=== PATIENT | female | born 1945 | race Caucasian/White ===

== ENCOUNTER 2023-12-20 00:37 | Observation (INO) ==
[2023-12-20] MEDS: dilTIAZem HCl 5 MG/ML 5 ML VIAL IV STA ×2 (00:56→02:02)
[2023-12-20 01:04] LABS: Basophils # (auto) 0.14 K/uL (0.00-0.20); Basophils % (auto) 1.5 %; Eosinophils # (auto) 0.42 K/uL (0.00-0.50); Eosinophils % (auto) 4.6 %; Hematocrit (blood only) 42.4 % (37.0-47.0); Immature Granulocytes # (auto) 0.03 K/uL (0.01-0.20); Immature Granulocytes % (auto) 0.3 %; Lymphocytes # (auto) 2.54 K/uL (1.20-3.40); Lymphocytes % (auto) 27.9 %; Mean Corpuscular Hemoglobin 30.8 pg (25.0-34.0); Mean Corpuscular Volume 93.4 fL (80.0-100.0); Mean Platelet Volume 9.2 fL (9.4-12.4); Monocytes # (auto) 0.83 K/uL (0.11-0.59); Monocytes % (auto) 9.1 %; Neutrophils # (auto) 5.16 K/uL (1.40-6.50); Neutrophils % (auto) 56.6 %; Platelet Count 259 K/uL (130-400); RDW Coefficient of Variation 13.1 % (11.5-14.5); Red Blood Count 4.54 M/uL (4.20-5.40); White Blood Count 9.12 K/ul (4.8-10.8)
--- NOTE | 2023-12-20 01:04 | Emergency Department Note ---
Impression & Plan Atrial fibrillation with rapid ventricular response Admit to the [facility] ED Provider Note NAME: MALCOLM FROST AGE: 78 SEX: Female INFORMANT: Patient ED PROVIDER(S): Fabi Pringle DO CHIEF COMPLAINT: Heart racing PLAN: Disposition: Admit to the [facility] MEDICAL DECISION MAKING: This is a 78-year-old female patient who presents to the emergency department with a racing heart sensation. Patient explains that she has had episodes in the past which were very short-lived lasting only approximately 10 to 15 minutes. Tonight, the patient noted her heart was racing around 1030 or 11 PM this evening and would not subside. Upon arrival in the emergency department, the patient was given a dose of IV Cardizem which did reduce her rate into the 80s but she remained in atrial fibrillation. Laboratory studies revealed no leukocytosis or anemia. Magnesium was within normal range. TSH was elevated but free thyroxine was normal. Troponin was negative. The patient's heart rate rebounded back into the 130s and 140s. She was bolused again with IV Cardizem and placed on a Cardizem drip. Patient's blood pressure remained stable. I discussed the case with the [facility] Hospitalist and they will evaluate for further inpatient care. Care/management discussed with: [facility] Triage Nursing notes: Reviewed and agree with them. Vital Signs: reviewed and remarkable for tachycardia Differential Diagnosis: Cardiac dysrhythmia, anxiety, cardiac ischemia Diagnostics, independently interpreted by me: ECG: A-fib with RVR at a rate of [address] segment elevation or signs of ischemia. Cardiac Monitoring: Fibrillation with rapid ventricular response at a rate of 147 HPI: 78 year old Female arrives for evaluation of heart palpitations. Around 1030 this evening, the patient noted that her heart was racing. She was unable to sleep. Patient describes previous episodes similar to this but were short- lived and only 10 to 15 minutes. She denies any chest pain, shortness of breath or lightheadedness. PAST MEDICAL HISTORY: See Below, PAST SURGICAL HISTORY: See Below, SOCIAL HISTORY: Patient lives with her but her is out of town at this time., HOME MEDICATIONS: See list ALLERGIES: None VITALS: See Below PHYSICAL EXAMINATION: HEENT: Head - normocephalic and atraumatic Pupils are equal, round, and reactive to light. Extraocular eye muscles are intact, and sclera are anicteric. Nose - moist nasal mucosa without discharge. Mouth - moist buccal mucosa. Oropharynx is nonerythematous and there is no tonsillar exudate or edema noted. Neck: Supple; no JVD, nuchal rigidity, cervical lymphadenopathy, or auscultated bruits. Heart: Tachycardic rate with an irregularly irregular rhythm. There is a normal S1 and S2 with no murmurs, clicks, or gallops appreciated. Lungs: Clear to auscultation bilaterally with no wheezes, rales, or rhonchi. Abdomen: Soft, completely nontender, nondistended, with good bowel sounds. There are no palpable pulsatile masses or hepatosplenomegaly. There is no guarding, rigidity, or rebound noted. Extremities: No evidence of cyanosis, clubbing, or edema. There are easily palpable peripheral pulses. Skin: warm and dry with good turgor and no rashes. Emergency department treatment: environmental monitoring specialist, IV Cardizem bolus, IV Cardizem drip Emergency department course: The patient was evaluated in room B-2. A complete history and physical was performed. An IV lock was initiated and labs were drawn as above. An order was placed for continuous cardiac monitoring. The patient was in a atrial fibrillation with a rapid ventricular response at a rate of 150. Twelve-lead EKG was obtained. The patient was given a dose of IV Cardizem in an effort to slow her rate. This did work initially as heart rate came down to the 80s. Upon repeat assessment, the patient was feeling somewhat better and was resting. I did review some laboratory studies with her. However, the patient's heart rate rebounded into the 140s and was back into an atrial fibrillation. At this point she received another bolus of IV Cardizem and was started on a Cardizem drip. I discussed the case with the [facility] Hospitalist and they will evaluate for further inpatient care. I have personally spent greater than 40 minutes of critical care time in the direct management of this patient. This includes bedside care, interpretation of diagnostic studies, and testing, discussion with consultants, patient, and family members, and other required patient management activities. This 40 minutes is in excess of all separately billable procedures. Past Med/Surg History Medical History Bilateral hearing loss History of COVID-19 Palpitations Rosacea Osteopenia Surgical History History of cataract surgery History of tooth extraction H/O breast surgery H/O section H/O colonoscopy Family History Mother Heart disease Afib Denies family history of Ovarian cancer Prostate cancer Myocardial infarction Breast cancer Lung cancer Colorectal cancer Stroke Social History Smoking Status: Never smoker Second Hand Exposure: No (hx); Do You Dip or Chew Tobacco: No; Hx Alcohol Use: Yes Alcohol type: wine Alcohol Intake Frequency: 4 or More x per/Week Hx Substance Use: No Preferred Language: Spanish Communication Ability: Effective Visual Impairment: Limited 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 Beliefs That Will Affect Care: None marital status: Current Living Situation: Spouse Current Living Situation Comment: current occupational status: retired How many Children do You have: 2 Feels Safe at Home: Yes Childhood Exposure to Second-Hand Smoke: Yes (father) Diet: regular caffeine: Yes during the past year weight has: remained stable Dental Care, Regularly: Yes Physical Activity Frequency: 5-6 Times per Week Seatbelt Use: always Sunscreen Use: Yes Assistive Devices: Glasses Allergies Allergies Allergy/AdvReac Type Severity Reaction Status Date / Time No Known Drug Allergies Allergy Unknown Verified 12/16/23 13:08 Home Meds Home Medications Medication Instructions Recorded Confirmed calcium polycarbophil 625 mg 625 mg PO QDL 03/16/22 12/20/23 tablet (FiberCon) ibuprofen 200 mg-diphenhydramine 1 cap PO HS PRN Sleep 03/16/22 12/20/23 HCl 25 mg capsule (Advil PM Liqui-Gels) mecobalamin (vitamin B12) 1,000 500 mcg PO DAILY 03/16/22 12/20/23 mcg chewable tablet cholecalciferol (vitamin D3) 25 25 mcg PO QDL 07/13/22 12/20/23 mcg (1,000 unit) capsule metronidazole 0.75 % topical cream 1 applic topical DAILY PRN Rash 07/13/22 12/20/23 triamcinolone acetonide 0.025 % 1 applic topical DAILY PRN Rash 07/13/22 12/20/23 topical cream Nutrafol 4 dose pk PO DAILY 01/04/23 12/20/23 calcium carbonate (Calcium 500) 500 mg PO QDL 01/04/23 12/20/23 ascorbic acid (vitamin C) 500 mg 500 mg PO QDL 12/20/23 12/20/23 capsule Results & Data (ED) Vital Signs Vital Signs - 24 hr 12/20/23 00:40 12/20/23 00:49 12/20/23 00:56 Temperature 36.5 C Temperature Source Temporal Artery Scan Pulse Rate 157 H 139 H 84 Pulse Rate [Apical] Pulse Rhythm [Apical] Pulse Strength [Apical] Respiratory Rate 16 Respiratory Effort / Characteristics Respiratory Depth Respiratory Pattern Blood Pressure 167/97 H Blood Pressure [Right Arm] Blood Pressure Mean 120 Blood Pressure Mean [Right Arm] Blood Pressure Position [Right Arm] Pulse Oximetry 98 Oxygen Delivery Method Room Air Sepsis Recent Fever Within 48 Hours No Sepsis New/Unexplained Change in Mental Status No Sepsis Action Taken by Nursing No Action Required 12/20/23 00:58 12/20/23 02:02 12/20/23 02:34 Temperature Temperature Source Pulse Rate 127 H Pulse Rate [Apical] 92 H 145 H Pulse Rhythm [Apical] Irregular Irregular Pulse Strength [Apical] Normal Respiratory Rate 18 16 Respiratory Effort / Characteristics Non-Labored Spontaneous Non-Labored Spontaneous Respiratory Depth Normal Normal Respiratory Pattern Regular Regular Blood Pressure Blood Pressure [Right Arm] 128/72 133/96 Blood Pressure Mean Blood Pressure Mean [Right Arm] 90 108 Blood Pressure Position [Right Arm] Semi-fowlers Semi-fowlers Pulse Oximetry 100 98 Oxygen Delivery Method Room Air Room Air Sepsis Recent Fever Within 48 Hours Sepsis New/Unexplained Change in Mental Status Sepsis Action Taken by Nursing 12/20/23 02:45 12/20/23 03:00 Temperature Temperature Source Pulse Rate Pulse Rate [Apical] 129 H 143 H Pulse Rhythm [Apical] Irregular Irregular Pulse Strength [Apical] Normal Normal Respiratory Rate 22 18 Respiratory Effort / Characteristics Non-Labored Non-Labored Respiratory Depth Normal Normal Respiratory Pattern Regular Regular Blood Pressure Blood Pressure [Right Arm] 143/94 H 132/83 Blood Pressure Mean Blood Pressure Mean [Right Arm] 110 99 Blood Pressure Position [Right Arm] Lying Lying Pulse Oximetry 99 97 Oxygen Delivery Method Room Air Room Air Sepsis Recent Fever Within 48 Hours Sepsis New/Unexplained Change in Mental Status Sepsis Action Taken by Nursing Laboratory Data 12/20/23 00:50 12/20/23 00:50 Lab Results 12/20/23 Range/Units 00:50 WBC 9.12 (4.8-10.8) K/ul RBC 4.54 (4.20-5.40) M/uL Hgb 14.0 (12.0-16.0) g/dl Hct 42.4 (37.0-47.0) % MCV 93.4 (80.0-100.0) fL MCH 30.8 (25.0-34.0) pg MCHC 33.0 (32.0-36.0) g/dL RDW Std Deviation 45.0 (36.4-46.3) fL RDW Coeff of Symone 13.1 (11.5-14.5) % Plt Count 259 (130-400) K/uL MPV 9.2 L (9.4-12.4) fL Immature Gran % (Auto) 0.3 % Neut % (Auto) 56.6 % Lymph % (Auto) 27.9 % [place] % (Auto) 9.1 % Eos % (Auto) 4.6 % Baso % (Auto) 1.5 % Neut # (Auto) 5.16 (1.40-6.50) K/uL Lymph # (Auto) 2.54 (1.20-3.40) K/uL [place] # (Auto) 0.83 H (0.11-0.59) K/uL Eos # (Auto) 0.42 (0.00-0.50) K/uL Baso # (Auto) 0.14 (0.00-0.20) K/uL Immature Gran # (Auto) 0.03 (0.01-0.20) K/uL Sodium 137 (136-145) mmol/L Potassium 3.7 (3.5-5.1) mmol/L Chloride 102 (98-107) mmol/L Carbon Dioxide 26 (21-32) mmol/L Anion Gap 9 (3-11) BUN 21 (6-23) mg/dl Creatinine 0.64 (0.6-1.2) mg/dl Est Cr Clr Drug Dosing 61.5 ml/min Est GFR ( Amer) 98.4 ml/min Est GFR (Non-Af Amer) 84.9 ml/min BUN/Creatinine Ratio 32.8 H (10-20) Glucose 106 H (70-99(Fasting)) mg/dl Calcium 9.2 (8.6-10.3) mg/dl Magnesium 1.7 (1.7-2.4) mg/dl Total Bilirubin 0.3 (0.2-1.0) mg/dl AST 19 (13-39) U/L ALT 13 (7-52) U/L Alkaline Phosphatase 49 (34-104) U/L Troponin I High Sens 9.0 (0-14) pg/ml Total Protein 7.6 (6.0-8.3) gm/dl Albumin 4.7 (3.4-5.0) gm/dl Globulin 2.9 (2.5-4.0) gm/dl Albumin/Globulin Ratio 1.6 (0.9-2) TSH 7.023 H (0.300-4.500) uIu/ml Free T4 0.88 (0.61-1.60) ng/dl Administered Medications Diltiazem HCl 125 mg/ Dextrose 125 mls @ 10 mls/hr IV .[id number] DAVIS; Protocol Stop: 01/19/24 01:59 Last Titration: 12/20/23 04:30 Dose: 5 mg/hr, 5 mls/hr Documented By: SHER Co-signed By: Titration: 12/20/23 02:56 Dose: 10 mg/hr, 10 mls/hr Documented By: SHER Co-signed By: IMELDA Admin: 12/20/23 02:02 Dose: 5 mg/hr, 5 mls/hr Documented By: SHALINI Co-signed By: ROMEO Magnesium Sulfate/Dextrose (Magnesium Sulfate / D5w) 1 gm in 100 mls @ 50 mls/hr IV Q2H DAVIS Stop: 12/20/23 07:14 Last Admin: 12/20/23 04:22 Dose: 50 mls/hr Documented By: SHER Potassium Chloride (K Darrell / Wtr) 10 meq in 100 mls @ 100 mls/hr IV Q1H DAVIS Stop: 12/20/23 05:14 Last Admin: 12/20/23 04:21 Dose: 100 mls/hr Documented By: SHER Discontinued Medications Diltiazem HCl (Diltiazem Hcl 5 Mg/Ml 5 Ml Vial) 15 mg IV NOW STA Stop: 12/20/23 00:50 Last Admin: 12/20/23 00:56 Dose: 15 mg Documented By: JT Co-signed By: MARGARITA Diltiazem HCl (Diltiazem Hcl 5 Mg/Ml 5 Ml Vial) 10 mg IV NOW STA Stop: 12/20/23 02:00 Last Admin: 12/20/23 02:02 Dose: 10 mg Documented By: DianeT Co-signed By: ROMEO Diltiazem HCl 125 mg/ Dextrose 125 mls @ 0 mls/hr IV .Q0M ONE; Protocol Stop: 12/20/23 01:52 Last Admin: 12/20/23 02:02 Dose: Not Given Documented By: SHALINI Miscellaneous (Stat Iv Infusion Titration Per Protocol) 1 each N/A NOW STA Stop: 12/20/23 01:52 Last Admin: 12/20/23 02:02 Dose: Not Given Documented By: SHALINI Discharge Plan Visit Data Chief Complaint: Tachycardia Stated Complaint: HEART RACING ED Provider: Fabi Pringle Discharge Problem: Atrial fibrillation with rapid ventricular response Discharge Instructions Interventions: ED Discharge Assessment Last Done: 12/20/23 03:24
[2023-12-20 01:19] LABS: Albumin Globulin Ratio 1.6 (0.9-2); Albumin Level 4.7 gm/dl (3.4-5.0); BUN Creatinine Ratio 32.8 (10-20); Bilirubin,Total 0.3 mg/dl (0.2-1.0); Calcium 9.2 mg/dl (8.6-10.3); Creatinine Clr Calc Pharmacy 61.5 ml/min; Est GFR (African American) 98.4 ml/min; Est GFR (Non-African American) 84.9 ml/min; Globulin 2.9 gm/dl (2.5-4.0); Magnesium 1.7 mg/dl (1.7-2.4); Potassium 3.7 mmol/L (3.5-5.1); Total Protein 7.6 gm/dl (6.0-8.3)
[2023-12-20 01:35] LABS: Thyroid Stimulating Hormone 7.023 uIu/ml (0.300-4.500)
[2023-12-20] MEDS: dilTIAZem HCL 125 MG in DEXTROSE 5% 100 ML IV ONE (02:02)
[2023-12-20] MEDS: STAT IV Infusion **Titration per Protocol STA (02:02)
[2023-12-20] MEDS: dilTIAZem HCL 125 MG in DEXTROSE 5% 100 ML IV SCH (02:02)
[2023-12-20 02:12] LABS: T4 Free Thyroxine 0.88 ng/dl (0.61-1.60)
--- NOTE | 2023-12-20 03:10 | History & Physical Report ---
Date of Service December 20, 2023 Assessment & Plan (1) Atrial fibrillation with RVR: Plan: -EKG showing A-fib with RVR. -Received Cardizem in the ED which initially returned to sinus rhythm. Though she quickly returned to A-fib with RVR. -Started on Cardizem drip. -CBC benign, CMP benign -TSH of 7.023, increased from previously. -Continue on diltiazem drip until converted back to normal sinus rhythm. -Will most likely need rate control medication at time of discharge. (2) Elevated blood pressure reading without diagnosis of hypertension: Plan: -Will continue monitoring blood pressure while inpatient. (3) Elevated TSH: Plan: -TSH at 7.023, which is increased from her TSH which was done on 12/06. -Will need outpatient follow-up. History of Present Illness Chief Complaint: afib with RVR Primary Care Provider: Sandra Dubose MD Patient is a 78 y/o female with no significant past medical history who presents to hospital with a fib with RVR. Patient states that she has been having a couple episodes with palpitations at nighttime. Though states that this most recent episode started around 10 PM today when she was dozing off to sleep. States that it woke her up from her sleep. She felt that her heart rate was irregular similar to when she has PVCs. She also states that she had ringing in your ears. She also states that she drank 2 glasses of wine this evening and believes that she was a little dehydrated. She drank water and her symptoms did not resolve. Around 11 PM she checked her Apple Watch which showed A-fib. She denies any chest pain, nausea, vomiting, or recent illness. States that she did just return from [place] for a lacrosse tournament. Denies any calf pain or shortness of breath. Allergies Allergy/AdvReac Type Severity Reaction Status Date / Time No Known Drug Allergies Allergy Unknown Verified 12/16/23 13:08 Home Medications Medication Instructions Recorded Confirmed Type calcium polycarbophil 625 mg 625 mg PO QDL 03/16/22 12/20/23 History tablet (FiberCon) ibuprofen 200 mg-diphenhydramine 1 cap PO HS PRN Sleep 03/16/22 12/20/23 History HCl 25 mg capsule (Advil PM Liqui-Gels) mecobalamin (vitamin B12) 1,000 500 mcg PO DAILY 03/16/22 12/20/23 History mcg chewable tablet cholecalciferol (vitamin D3) 25 25 mcg PO QDL 07/13/22 12/20/23 History mcg (1,000 unit) capsule metronidazole 0.75 % topical cream 1 applic topical DAILY PRN Rash 07/13/22 12/20/23 History triamcinolone acetonide 0.025 % 1 applic topical DAILY PRN Rash 07/13/22 12/20/23 History topical cream Nutrafol 4 dose pk PO DAILY 01/04/23 12/20/23 History calcium carbonate (Calcium 500) 500 mg PO QDL 01/04/23 12/20/23 History ascorbic acid (vitamin C) 500 mg 500 mg PO QDL 12/20/23 12/20/23 History capsule Past Med/Surg History Medical History Bilateral hearing loss History of COVID-19 Palpitations Rosacea Osteopenia Surgical History History of cataract surgery History of tooth extraction H/O breast surgery H/O section H/O colonoscopy Family History Mother Heart disease Afib Denies family history of Ovarian cancer Prostate cancer Myocardial infarction Breast cancer Lung cancer Colorectal cancer Stroke Social History Smoking Status: Never smoker Second Hand Exposure: No (hx); Do You Dip or Chew Tobacco: No; Hx Alcohol Use: Yes Alcohol type: wine Alcohol Intake Frequency: 4 or More x per/Week Hx Substance Use: No Preferred Language: Wallisian Communication Ability: Effective Visual Impairment: Limited Hearing Ability: Normal Pm Head Cook Required: No Beliefs That Will Affect Care: None marital status: Current Living Situation: Spouse Current Living Situation Comment: current occupational status: retired How many Children do You have: 2 Feels Safe at Home: Yes Childhood Exposure to Second-Hand Smoke: Yes (father) Diet: regular caffeine: Yes during the past year weight has: remained stable Dental Care, Regularly: Yes Physical Activity Frequency: 5-6 Times per Week Seatbelt Use: always Sunscreen Use: Yes Assistive Devices: Glasses Review of Systems Review of Systems: All systems reviewed & are unremarkable except as noted in Subjective Physical Exam Physical Exam: Constitutional: well-appearing, no acute distress HEENT: NCAT, no conjunctival injection CV: Irregularly irregular rate and rhythm, no murmur appreciated, extremities well-perfused, no LE edema Resp: CTABL, no wheezes/rales/rhonchi appreciated, no increased work of breathing GI: soft, nondistended, nontender, BS normoactive MSK: no gross deformities appreciated Skin: warm, dry, no rash appreciated Neuro: alert, oriented, no focal neurologic deficit appreciated Results & Data Results & Data Vital Signs (Past 12 Hours) Vital Signs Temp Pulse Pulse Resp BP BP Pulse Ox 12/20/23 03:00 143 H 18 132/83 97 12/20/23 02:45 129 H 22 143/94 H 99 12/20/23 02:34 127 H 12/20/23 02:02 145 H 16 133/96 98 12/20/23 00:58 92 H 18 128/72 100 12/20/23 00:56 84 12/20/23 00:49 139 H 12/20/23 00:40 36.5 C 157 H 16 167/97 H 98 O2 Del Method 12/20/23 03:00 Room Air 12/20/23 02:45 Room Air 12/20/23 02:34 12/20/23 02:02 Room Air 12/20/23 00:58 Room Air 12/20/23 00:56 12/20/23 00:49 12/20/23 00:40 Room Air
[2023-12-20] MEDS ORDERED: ONDANSETRON INJ 2 MG/ML 2 ML VIAL IV PRN (03:24)
[2023-12-20] MEDS ORDERED: NITROGLYCERIN SL 0.4 MG/TAB TAB SL PRN (03:24)
[2023-12-20] MEDS: POTASSIUM CHLORIDE / WTR 10 MEQ/100 ML PLCT IV SCH (04:21)
[2023-12-20] MEDS: MAGNESIUM SULFATE / D5W 1 GM/100 ML BAG IV SCH (04:22)
[2023-12-20] MEDS: ACETAMINOPHEN 325 MG TAB PO PRN (11:07)
--- NOTE | 2023-12-20 12:31 | Cardiology Consultation ---
Date of Consultation December 20, 2023 Assessment & Plan (1) Paroxysmal atrial fibrillation: Plan ASSESSMENT/PLAN: 1. Paroxysmal atrial fibrillation: Newly diagnosed during this hospital stay. Wears a smart watch and has not had indicated A-fib in the past. Possible brief A-fib 5 years ago based on her description. Diagnosis was discussed with her in detail. Treatment strategies were discussed in detail, including rate control, rhythm control, ablation. She prefers less aggressive treatment if possible. Can discharge home on metoprolol 25 mg twice daily. Elevated [id number] score (3) and therefore recommend anticoagulation for stroke risk reduction. She was agreeable. Recommend Eliquis 5 mg twice daily on discharge. If she has frequent recurrence, and remains symptomatic with such, we will further discuss rhythm control or ablation. 2. Disposition: Can be discharged home from a cardiac perspective. Will arrange outpatient follow-up in approximately 1 month in the cardiology office. Patient care communicated with primary hospitalist service, Jacquelyn Abbott PA-C. Thank you for allowing me to participate in the care of your patient. Please call for any other questions or concerns. Sincerely, Tacho Leon M.D. History of Present Illness Reason for Consultation: New onset atrial fibrillation with RVR Requesting Physician: Dr. Freeman Attending Physician: Demetrius Cervantes MD History of Present Illness Mrs. Garcia is a very pleasant 78-year-old female without significant past medical history who was admitted on 12/20/2023 with new onset atrial fibrillation with rapid ventricular response. On 12/19/2023, at approximately 10:30 PM, she laid down in bed and when she turned over, had palpitations as though her heart was racing. There was no associated shortness of breath, chest pain, syncope, near syncope, lightheadedness, or any other symptom. She did some deep breathing with no improvement of her symptoms. She then drank some water as she was concerned that she may have been dehydrated as she was out of town watching her grandson play lacrosse all day and had very little to drink. When symptoms persisted beyond 2 hours, she drove herself to the emergency department. She was found to be in A-fib with RVR. She received diltiazem and reportedly converted to sinus rhythm only quickly to revert to A-fib with RVR. Diltiazem drip was initiated. At 4:08 AM on 12/20/2023, she was in A-fib with RVR and telemetry signal was lost, perhaps to use the restroom and she was up several times throughout the night. When telemetry data returned at 4:11 AM, she was in sinus rhythm. She remained in sinus rhythm through the rest of the morning and early afternoon when she was seen for this consultation. She felt back to baseline. She has not had any further palpitations. She recalls having palpitations approximately 5 years ago while at [facility]. Symptoms persisted for 10 to 15 minutes and were similar to presenting symptoms. She was dehydrated at that time. She went to the ER the next day and testing was unremarkable. She wears a smart watch, throughout the day and typically at night as well. It alerted her that she was in atrial fibrillation last night when her symptoms began. It has not indicated atrial fibrillation prior to that at any other time. She snores if she lays on her back but otherwise denies paroxysmal nocturnal dyspnea. She feels well rested when she wakes up in the morning and does not require naps throughout the day. She denies a history of stroke, TIA, heart failure, diabetes, hypertension, or vascular disease. She feels back to baseline and would like to be discharged home. Incidentally, she consumes 2 glasses of wine the evening that her symptoms began, which is not unusual. Review of systems: As above. Review of systems otherwise negative/unremarkable. Family history: Mother had atrial fibrillation and at age 95. No known premature CAD. Social history: She denies tobacco or drug abuse. Consumes approximately 1 glass of wine per day and has cut back intentionally. She is and lives at home with her . She has a son and a daughter (RN) who live locally. She has 4 grandchildren. 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 She was unaccompanied in the ER. Allergies Allergy/AdvReac Type Severity Reaction Status Date / Time No Known Drug Allergies Allergy Unknown Verified 12/16/23 13:08 Home Medications Medication Instructions Recorded Confirmed Type calcium polycarbophil 625 mg 625 mg PO QDL 03/16/22 12/20/23 History tablet (FiberCon) mecobalamin (vitamin B12) 1,000 500 mcg PO DAILY 03/16/22 12/20/23 History mcg chewable tablet cholecalciferol (vitamin D3) 25 25 mcg PO QDL 07/13/22 12/20/23 History mcg (1,000 unit) capsule metronidazole 0.75 % topical cream 1 applic topical DAILY PRN Rash 07/13/22 12/20/23 History triamcinolone acetonide 0.025 % 1 applic topical DAILY PRN Rash 07/13/22 12/20/23 History topical cream Nutrafol 4 dose pk PO DAILY 01/04/23 12/20/23 History calcium carbonate (Calcium 500) 500 mg PO QDL 01/04/23 12/20/23 History acetaminophen 325 mg tablet 650 mg (2 x 325 mg) PO Q4H PRN 12/20/23 Rx fever or pain 30 days #30 tabs apixaban 5 mg tablet (Eliquis) 5 mg PO BID #60 tabs 12/20/23 Rx ascorbic acid (vitamin C) 500 mg 500 mg PO QDL 12/20/23 12/20/23 History capsule metoprolol tartrate 25 mg tablet 25 mg PO BID #60 tabs 12/20/23 Rx Patient History Medical History (Updated 12/20/23 @ 17:38 by Yared Leon MD) Paroxysmal atrial fibrillation Bilateral hearing loss History of COVID-03 Jun 2022 > not hospitalized Palpitations no cardio Rosacea Osteopenia Surgical History History of cataract surgery History of tooth extraction H/O breast surgery benign, calcifications. H/O section x1 H/O colonoscopy 05/08/2019 recommend repeat in 5 years Family History Mother Heart disease Afib Denies family history of Ovarian cancer Prostate cancer Myocardial infarction Breast cancer Lung cancer Colorectal cancer Stroke Social History Smoking Status: Never smoker Second Hand Exposure: No (hx); Do You Dip or Chew Tobacco: No; Hx Alcohol Use: Yes Alcohol type: wine Alcohol Intake Frequency: 4 or More x per/Week Hx Substance Use: No Preferred Language: Jordanian Communication Ability: Effective Visual Impairment: Limited Hearing Ability: Normal Airway Controller Required: No Beliefs That Will Affect Care: None marital status: Current Living Situation: Spouse Current Living Situation Comment: Two story home, with master suite on first floor. current occupational status: retired How many Children do You have: 2 Feels Safe at Home: Yes Childhood Exposure to Second-Hand Smoke: Yes (father) Diet: regular caffeine: Yes during the past year weight has: remained stable Dental Care, Regularly: Yes Physical Activity Frequency: 5-6 Times per Week Seatbelt Use: always Sunscreen Use: Yes Assistive Devices: None Physical Exam Physical Exam: Gen.: No acute distress. Alert and oriented. HEENT: Anicteric sclera. Neck: No JVD. No bruits. Normal carotid upstrokes bilaterally. Cardiac: No ventricular heave. Regular. Normal S1-S2. 1/6 systolic murmur. Pulmonary: Clear to auscultation bilaterally without wheezes, rales, or rhonchi. Abdomen: Soft, nontender, nondistended, with normoactive bowel sounds. No bruits noted. Extremities: 2+ radial pulses bilaterally. 2+ posterior tibialis pulses bilaterally. No edema or cyanosis. Psychiatric: Affect appears appropriate. Results & Data Vital Signs (Past 12 Hours) Vital Signs Temp Pulse Pulse Resp BP BP Pulse Ox 12/20/23 10:33 60 20 134/69 97 12/20/23 08:27 68 20 135/72 98 12/20/23 07:07 73 12/20/23 06:00 74 13 119/67 98 12/20/23 05:00 75 18 109/64 96 12/20/23 04:30 76 14 121/72 95 12/20/23 04:15 81 21 97 12/20/23 04:12 80 12/20/23 04:00 115 H 24 114/89 97 12/20/23 03:00 143 H 18 132/83 97 12/20/23 02:45 129 H 22 143/94 H 99 12/20/23 02:34 127 H 12/20/23 02:02 145 H 16 133/96 98 12/20/23 00:58 92 H 18 128/72 100 12/20/23 00:56 84 12/20/23 00:49 139 H 12/20/23 00:40 36.5 C 157 H 16 167/97 H 98 O2 Del Method 12/20/23 10:33 Room Air 12/20/23 08:27 Room Air 12/20/23 07:07 12/20/23 06:00 Room Air 12/20/23 05:00 Room Air 12/20/23 04:30 Room Air 12/20/23 04:15 Room Air 12/20/23 04:12 12/20/23 04:00 Room Air 12/20/23 03:00 Room Air 12/20/23 02:45 Room Air 12/20/23 02:34 12/20/23 02:02 Room Air 12/20/23 00:58 Room Air 12/20/23 00:56 12/20/23 00:49 12/20/23 00:40 Room Air Laboratory Results Laboratory Results - last 24 hr 12/20/23 12/20/23 00:50 05:19 WBC 9.12 RBC 4.54 Hgb 14.0 Hct 42.4 MCV 93.4 MCH 30.8 MCHC 33.0 RDW Std Deviation 45.0 RDW Coeff of Symone 13.1 Plt Count 259 MPV 9.2 L Immature Gran % (Auto) 0.3 Neut % (Auto) 56.6 Lymph % (Auto) 27.9 [place] % (Auto) 9.1 Eos % (Auto) 4.6 Baso % (Auto) 1.5 Neut # (Auto) 5.16 Lymph # (Auto) 2.54 [place] # (Auto) 0.83 H Eos # (Auto) 0.42 Baso # (Auto) 0.14 Immature Gran # (Auto) 0.03 Sodium 137 Potassium 3.7 Chloride 102 Carbon Dioxide 26 Anion Gap 9 BUN 21 Creatinine 0.64 Est Cr Clr Drug Dosing 61.5 Est GFR ( Amer) 98.4 Est GFR (Non-Af Amer) 84.9 BUN/Creatinine Ratio 32.8 H Glucose 106 H Calcium 9.2 Magnesium 1.7 Total Bilirubin 0.3 AST 19 ALT 13 Alkaline Phosphatase 49 Troponin I High Sens 9.0 13.8 D Total Protein 7.6 Albumin 4.7 Globulin 2.9 Albumin/Globulin Ratio 1.6 TSH 7.023 H Free T4 0.88 Diagnostic Findings Echo 12/20/23: 1. Normal left ventricular size and systolic function. EF 60-65%. No regional wall motion abnormalities. No left ventricular hypertrophy. 2. Mild aortic regurgitation. 3. Normal estimated right ventricular systolic pressure. 4. Sinus rhythm. 5. No prior study available for comparison. Labs reviewed and notable for normal blood counts, mildly elevated TSH, normal free T4, normal albumin, normal transaminase levels, normal magnesium, normal potassium levels. ECGs personally reviewed: ECG 12/20/2023 at 12:46 AM: A-fib with RVR [address] abnormality. Septal infarct. Repeat ECG 12/20/2023 at 5:35 AM: NSR 72 bpm. Poor R wave progression. History and physical report reviewed. Telemetry personally reviewed as noted above in HPI. Medications Administered Current Inpatient Medications Acetaminophen (Acetaminophen 325 Mg Tab) 650 mg PO Q4H PRN PRN Reason: Pain or Fever Stop: 01/19/24 03:23 Last Admin: 12/20/23 11:07 Dose: 650 mg Nitroglycerin (Nitroglycerin Sl 0.4 Mg/Tab Tab) 0.4 mg SL Q5M PRN PRN Reason: Chest Pain Stop: 01/19/24 03:23 Ondansetron HCl (Ondansetron Inj 2 Mg/Ml 2 Ml Vial) 4 mg IV Q6H PRN PRN Reason: Nausea Stop: 01/19/24 03:23 PG Care Time/CCT Total # of Minutes Spent Total Time Spent with Patient: Total time spent is greater than 50% in coordination of care (as documented) at patient's floor/unit and/or counseling patient: Coding Level of Care Code 31445 INT INP/OBS CARE 2/55MIN Diagnoses Paroxysmal atrial fibrillation I48.0
--- NOTE | 2023-12-20 13:49 | Discharge Summary ---
Discharge Summary Date of Service December 20, 2023 Notes For Next Care Provider Found to be in afib with RVR - converted with cardizem drip. Seen by cardiology, discharged with metoprolol and Eliquis. TSH - subclinical hypothyroidism - recommend recheck TSH outpatient Medication Changes From Visit Started metoprolol tartrate 25mg BID eliquis 5mg BID Admission HPI Per Admitting Provider Patient is a 78 y/o female with no significant past medical history who presents to hospital with a fib with RVR. Patient states that she has been having a couple episodes with palpitations at nighttime. Though states that this most recent episode started around 10 PM today when she was dozing off to sleep. States that it woke her up from her sleep. She felt that her heart rate was irregular similar to when she has PVCs. She also states that she had ringing in your ears. She also states that she drank 2 glasses of wine this evening and believes that she was a little dehydrated. She drank water and her symptoms did not resolve. Around 11 PM she checked her Apple Watch which showed A-fib. She denies any chest pain, nausea, vomiting, or recent illness. States that she did just return from [place] for a lacrosse tournament. Denies any calf pain or shortness of breath. Principal Dx & Hospital Course #1 = Principal Diagnosis (1) Atrial fibrillation with rapid ventricular response: -EKG showing A-fib with RVR. -Was started on Cardizem drip and then converted to normal sinus rhythm -Cardiology consulted -Metoprolol tart [place] 25 mg twice daily -Eliquis 5 mg twice daily -Outpatient cardiology follow-up Echo: EF 60-65 no region wall motion abnormalities no LVH (2) Elevated TSH: -TSH at 7.023, but T4 WNL -Will need outpatient follow-up. Plan Dispo: Discharged to home today with outpatient cardiology follow-up Discharge Exam General: NAD, VS as above Resp: normal respiratory effort, lungs clear to auscultation CV: RRR, no murmur, Abd: normal bowel sounds, non tender, no hepatosplenomegaly Extremities: Moves all extremities, no edema Neuro: A&O x3, Updated Medication List Medication Instructions Recorded Confirmed Type calcium polycarbophil 625 mg 625 mg PO QDL 03/16/22 12/20/23 History tablet (FiberCon) mecobalamin (vitamin B12) 1,000 500 mcg PO DAILY 03/16/22 12/20/23 History mcg chewable tablet cholecalciferol (vitamin D3) 25 25 mcg PO QDL 07/13/22 12/20/23 History mcg (1,000 unit) capsule metronidazole 0.75 % topical cream 1 applic topical DAILY PRN Rash 07/13/22 12/20/23 History triamcinolone acetonide 0.025 % 1 applic topical DAILY PRN Rash 07/13/22 12/20/23 History topical cream Nutrafol 4 dose pk PO DAILY 01/04/23 12/20/23 History calcium carbonate (Calcium 500) 500 mg PO QDL 01/04/23 12/20/23 History acetaminophen 325 mg tablet 650 mg (2 x 325 mg) PO Q4H PRN 12/20/23 Rx fever or pain 30 days #30 tabs apixaban 5 mg tablet (Eliquis) 5 mg PO BID #60 tabs 12/20/23 Rx ascorbic acid (vitamin C) 500 mg 500 mg PO QDL 12/20/23 12/20/23 History capsule metoprolol tartrate 25 mg tablet 25 mg PO BID #60 tabs 12/20/23 Rx Hospital Stay Data Consultations 12/20/23 02:25 ED Decision to Admit Stat 12/20/23 06:35 Consult Cardiology Routine Pending Results Patient Have Any Pending Studies at Discharge: No Discharge Instructions Given to Patient (Per Discharging Provider) Ms. Garcia, Ferny were hospitalized after being found in afib with rapid ventricular response. Thankfully this has converted back to sinus rhythm with administration of medications. You were seen by cardiology who recommended metoprolol tartate 25mg twice a day (this is a medication to control your heart rate that can also be used for blood pressure) and Eliquis 5 mg twice a day (this is a blood thinner to prevent blood clots). These have been sent to your pharmacy. Information about taking Eliquis is included below. Your thyroid studies were also borderline elevated as we discussed. Recommend repeat labs with your PCP in the next few weeks. You will need to follow up with cardiology, they should contact you with an appointment. Here are some guidelines about taking Eliquis: Eliquis may cause serious side effects, including: Increased risk of blood clots if you stop taking Eliquis.Do not stop taking Eliquis without talking to your grounds supervisor. Stopping Eliquis increases your risk of having a stroke. Increased risk of bleeding. Eliquis can cause bleeding which can be serious and may lead to . This is because Eliquis is a blood thinner medicine (anticoagulant) that lowers blood clotting. During treatment with Eliquis you are likely to bruise more easily, and it may take longer for bleeding to stop. * If you ever cannot get bleeding to stop please report to the ER * If you have a bruise that is large/painful or swollen you should also be seen by a medical provider Call your doctor or get medical help right away if you or your child develop any of these signs or symptoms of bleeding: unexpected bleeding or bleeding that lasts a long time, such as: * nose bleeds that happen often * unusual bleeding from the gums * bleeding that is severe or you cannot control * red, pink or brown urine * bright red or black stools (looks like tar) * cough up blood or blood clots * vomit blood or your vomit looks like coffee grounds If you have a fall and hit your head, please come to the ER and get checked out. Being on a blood thinner increases your risk of brain bleeding with falls. Avoid high risk activities, such as: * standing on tall ladders * riding motorcycles * anything where you are high risk for falls or trauma Avoid taking NSAIDs (pain medication) while you are taking a blood thinner. This includes: * Ibuprofen, Aleve Advil, Naproxen. * If you are ever unsure you can ask your doctor or pharmacist. * Tylenol is SAFE to take. Remember to always take Eliquis with food. If you have any new or worsening chest pain or shortness of breath please return to the ER. It was our pleasure taking care of you. Total Time Total Time Spent Total Time Spent (In Minutes): Time spend day of discharge 45 minutes including direct patient care, medication reconciliation, documentation, review of labs and images, and coordination of care. Coding Level of Care Code INP/OBS EV SAME DAY LV 2,70MIN Diagnoses Atrial fibrillation with rapid ventricular response I48.91 Elevated TSH R79.89
--- NOTE | 2023-12-20 15:22 | Electrocardiogram Report ---
Test Reason : Blood Pressure : / mmHG Vent. Rate : 150 BPM Atrial Rate : 000 BPM P-R Int : 000 ms QRS Dur : 078 ms QT Int : 278 ms P-R-T Axes : 000 005 136 degrees QTc Int : 439 ms Atrial fibrillation with rapid ventricular response Septal infarct , age undetermined Nonspecific ST abnormality Abnormal ECG No previous ECGs available Confirmed by Yared Leon ([id number]) on 12/20/2023 3:21:58 PM Referred By: NO PCP Confirmed By:Yared Leon
--- NOTE | 2023-12-20 15:32 | XCELERA ---
[id number]
--- NOTE | 2023-12-20 22:07 | Electrocardiogram Report ---
Test Reason : Blood Pressure : / mmHG Vent. Rate : 072 BPM Atrial Rate : 072 BPM P-R Int : 184 ms QRS Dur : 084 ms QT Int : 386 ms P-R-T Axes : 051 -08 056 degrees QTc Int : 422 ms Normal sinus rhythm Possible Anterior infarct (cited on or before 20-DEC-2023) Abnormal ECG When compared with ECG of 20-DEC-2023 00:46, Sinus rhythm has replaced Atrial fibrillation Vent. rate has decreased BY 78 BPM Questionable change in initial forces of Septal leads ST no longer depressed in Inferior leads ST no longer depressed in Lateral leads Confirmed by Yared Leon ([id number]) on 12/20/2023 10:07:23 PM Referred By: NO PCP Confirmed By:Yared Leon
== END 2023-12-20 14:47 | disposition home or self-care (01) ==
LOC: ED 00:37 → EDINP 00:37 → SUATTDRO 03:10 → EDINP 03:24

== ENCOUNTER 2025-07-20 07:10 | Observation (INO) ==
--- NOTE | 2025-06-13 16:18 | PAT Medication Instructions ---
Medication Instructions Date of Service June 13, 2025 Home Medications Medication Instructions Recorded tramadol 50 mg tablet 50 mg PO Q8H PRN pain #15 tabs 12/19/24 apixaban 5 mg tablet (Eliquis) 5 mg PO BID #180 tabs 04/12/25 metoprolol tartrate 25 mg tablet 25 mg PO BID #180 tabs 04/12/25 metronidazole 0.75 % topical cream 1 applic topical DAILY PRN triamcinolone acetonide 0.025 % topical cream 1 applic topical DAILY PRN tramadol 50 mg tablet 50 mg PO Q8H PRN apixaban 5 mg tablet (Eliquis) 5 mg PO BID metoprolol tartrate 25 mg tablet 25 mg PO BID Colorproof Biorepair Hair Serum 1 applic topical DAILY Probiotic 1 cap PO DAILY acetaminophen 500 mg tablet (Tylenol Extra Strength) 1,000 mg PO DAILY PRN calcium polycarbophil 625 mg tablet (FiberCon) 1,250 mg PO DAILY Continue as directed acetaminophen 500 mg tablet (Tylenol Extra Strength) 1,000 mg PO DAILY PRN(if needed) ASK your prescriber and surgeon apixaban 5 mg tablet (Eliquis) 5 mg PO BID(in order for spinal or epidural anesthesia, Eliquis needs to be stopped 72 hours/3 days before surgery. Please check if okay with doctor that prescribes this to you) STOP taking 24 hours before surgery metronidazole 0.75 % topical cream 1 applic topical DAILY PRN triamcinolone acetonide 0.025 % topical cream 1 applic topical DAILY PRN Colorproof Biorepair Hair Serum 1 applic topical DAILY DO NOT take the morning of surgery Probiotic 1 cap PO DAILY calcium polycarbophil 625 mg tablet (FiberCon) 1,250 mg PO DAILY Take morning of surgery With a small sip of water, OTHERWISE NOTHING TO EAT OR DRINK AFTER MIDNIGHT: tramadol 50 mg tablet 50 mg PO Q8H PRN(if needed) metoprolol tartrate 25 mg tablet 25 mg PO BID Take evening before surgery tramadol 50 mg tablet 50 mg PO Q8H PRN(if needed) metoprolol tartrate 25 mg tablet 25 mg PO BID Other Notes If you have any questions please call us at [phone] or [phone] or [phone] or [phone]
--- NOTE | 2025-06-22 08:56 | Anesthesiology Consultation ---
Date of Service June 22, 2025 Assessment & Plan (1) Encounter for pre-operative examination: - cardiology office visit 05/07/25 [place]: "...appointment with orthopedics next week to discuss possible CLARI in the future...Paroxysmal atrial fibrillation: No further atrial fibrillation detected. Continue beta-dominik for rate control strategy. Continue anticoagulation for stroke risk reduction...No significant sleep apnea in 2023. No A-fib on event monitor in 2023...preferred conservative management for now but if significant symptomatic recurrence, could consider antiarrhythmic therapy or ablation. Palpitations: Rare and non-bothersome. On event monitor, they correlated with PACs, PVCs, and nonsustained atrial tachycardia in the past...Follow-up in approximately 6 months or sooner for questions or concerns..." - Outpatient joint assessment: Patient is currently scheduled for inpatient pathway. If re-evaluated and patient/surgeon requests outpatient pathway, patient is not a candidate for outpatient joint program. Chart Review Chart Review: Acceptable Risk for Surgery and Patient seen in Pre Admission Testing Teaching & Discussion Pre-Anesthesia Teaching/Discussion Notes: Instructed NPO after midnight before surgery, except medications with 15 cc of water. Medication instructions provided according to the PAT guidelines. History Surgery Operation Date: 07/20/25 11:00 Proposed Procedures p Right Total Hip Arthroplasty Anterior - Jesse Pack DO Height/Weight Height: 5 ft 4.5 in Weight: 63 kg Allergies Allergy/AdvReac Type Severity Reaction Status Date / Time No Known Drug Allergies Allergy Unknown Verified 06/13/25 13:58 milk AdvReac Intermediate Gastrointestinal Verified 06/13/25 13:58 Upset Medications Home Medications Medication Instructions Recorded Confirmed Last Taken metronidazole 0.75 % topical cream 1 applic topical DAILY PRN 07/13/22 06/13/25 01/25/23 Rash/Rosacea triamcinolone acetonide 0.025 % 1 applic topical DAILY PRN 07/13/22 06/13/25 01/25/23 topical cream Rash/Eczema tramadol 50 mg tablet 50 mg PO Q8H PRN pain #15 tabs 12/19/24 06/13/25 Unknown apixaban 5 mg tablet (Eliquis) 5 mg PO BID #180 tabs 04/12/25 06/13/25 Unknown metoprolol tartrate 25 mg tablet 25 mg PO BID #180 tabs 04/12/25 06/13/25 Unknown Colorproof Biorepair Hair Serum 1 applic topical DAILY 06/13/25 06/13/25 Unknown Probiotic 1 cap PO DAILY 06/13/25 06/13/25 Unknown acetaminophen 500 mg tablet 1,000 mg PO DAILY PRN Pain 06/13/25 06/13/25 Unknown (Tylenol Extra Strength) calcium polycarbophil 625 mg 1,250 mg PO DAILY 06/13/25 06/13/25 Unknown tablet (FiberCon) Past Medical History Medical History (Updated 06/22/25 @ 10:44 by Maria Gordon PA-C) 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- saw a neurosurgeon at [facility] - told nothing to worry about Bilateral hearing loss hearing aids Elevated TSH pt unsure, 06/2025 WNL TSH and T4 History of colon polyps History of COVID-19 (03/25/24) not hospitalized - resolved History of palpitations [facility]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 Exercise / Class Metabolic Activity II 4-5 Yardwork/Stairs/Walk up hill (denies chest discomfort or shortness of breath walking up one flight of stairs) Past Family History Family History Mother Heart disease Afib Denies family history of Ovarian cancer Prostate cancer Myocardial infarction Breast cancer Lung cancer Colorectal cancer Stroke Past Surgical History Surgical History (Updated 06/22/25 @ 09:01 by Maria Gordon PA-C) H/O breast surgery x3 biopsies - benign, calcifications. H/O section x1 H/O colonoscopy (05/2024) multiple History of tooth extraction Hx of bilateral cataract extraction (2022) Past Anesthesia History No Hx of Anesthesia Complications and No Family Hx of Anesthesia Complications History of PONV No Hx of PONV and No Hx of Motion Sickness Social History Smoking Status: Never smoker Do You Dip or Chew Tobacco: No Hx Alcohol Use: Yes Alcohol type: wine alcohol intake frequency: a few times a week Hx Substance Use: No substance use type: does not use Review of Systems Patient denies chest pain, shortness of breath, dyspnea on exertion, snoring, witnessed apneas, reflux, fever, chills, cough, wheezing, or palpitations. Physical Exam Vital Signs Vitals BP 159/73 P 54 TEMP 98.4 SP02 97% on RA RESP 17 Physical Patient resting comfortably in chair in no acute distress, alert and oriented, responding appropriately throughout visit Full cervical extension range of motion without pain TMD 3.5 finger breadths Mallampati Score 2 Dentition: several caps/crowns, denies chipped or loose teeth, implants or bridges Lungs: normal respiratory effort. Good air movement, clear throughout to auscultation, no adventitious breath sounds Cardiac: regular rate and rhythm, no murmurs noted Carotid arteries: negative bruit bilat Lab Results Anesthesia Preop Results Results Anesthesia Widget: WBC 5.31 K/ul (4.8-10.8) 06/22/25 Hgb 13.1 g/dl (12.0-16.0) 06/22/25 Hct 38.5 % (37.0-47.0) 06/22/25 Plt 246 K/uL (130-400) 06/22/25 Na 136 mmol/L (136-145) 06/22/25 K 4.0 mmol/L (3.5-5.1) 06/22/25 Cl 102 mmol/L (98-107) 06/22/25 CO2 27 mmol/L (21-32) 06/22/25 BUN 12 mg/dl (6-23) 06/22/25 Creat 0.63 mg/dl (0.6-1.2) 06/22/25 Glucose Level 95 mg/dl (70-99(Fasting)) 06/22/25 PT 11.0 Seconds (9.0-12.0) 06/22/25 PTT 30 Seconds (21-31) 06/22/25 INR 1.0 (0.9-1.1) 06/22/25 TSH 1.816 uIu/ml (0.300-4.500) 11/07/25 Free T4 1.11 ng/dl (0.61-1.60) 06/22/25 Blood Type O Positive 06/22/25 Antibody Screen NEGATIVE 06/22/25 Testing Electrocardiogram Date: 06/22/25 Sinus bradycardia, rate 51 bpm Chest X-Ray Date: 06/22/25 No acute findings. There is mild apical pleural scarring. Lungs are hyperexpanded. No consolidation or pleural effusion seen. Echocardiogram Date: 12/20/23 EF 60-65% No regional wall motion abnormalities No LVH Mild aortic regurgitation Other Testing Head and neck MRA 01/26/24 Unremarkable MRA of the head. No stenosis or dissection within the bilateral common carotid, cervical internal carotid or vertebral arteries. 4 mm saccular outpouching arising from the distal cervical portion of the right vertebral artery suggestive of a small saccular aneurysm. This is of questionable significance. No additional aneurysms within the neck.
--- NOTE | 2025-07-19 09:43 | History & Physical Report ---
Date of Service July 19, 2025 Assessment & Plan (1) Osteoarthritis of right hip: We will proceed with a right anterior total of arthroplasty. Postoperatively, she will be started on Eliquis for DVT prophylaxis and kept overnight in the hospital for postop medical management. She plans to use [facility] physical therapy home services after discharge. History of Present Illness Chief Complaint: Osteoarthritis of the right hip. Primary Care Provider: Sandra Cason MD Anat is a pleasant 79-year-old female who has been dealing with chronic worsening right hip and groin pain. It has been really worse over the past few months. She had a single cortisone injection from Dr. Underwood. It did help a lot for about 6 weeks. Unfortunately, her pain is becoming more unbearable. X- rays have shown advanced arthritis of the right hip. After failing conservative treatment, she has elected to proceed with a right anterior total of arthropla sty. Allergies Allergy/AdvReac Type Severity Reaction Status Date / Time No Known Drug Allergies Allergy Unknown Verified 07/05/25 08:57 milk AdvReac Intermediate Gastrointestinal Verified 07/05/25 08:57 Upset Home Medications Medication Instructions Recorded Confirmed Type metronidazole 0.75 % topical cream 1 applic topical DAILY PRN 07/13/22 06/13/25 History Rash/Rosacea triamcinolone acetonide 0.025 % 1 applic topical DAILY PRN 07/13/22 06/13/25 History topical cream Rash/Eczema tramadol 50 mg tablet 50 mg PO Q8H PRN pain #15 tabs 12/19/24 06/13/25 Rx apixaban 5 mg tablet (Eliquis) 5 mg PO BID #180 tabs 04/12/25 06/13/25 Rx metoprolol tartrate 25 mg tablet 25 mg PO BID #180 tabs 04/12/25 06/13/25 Rx Colorproof Biorepair Hair Serum 1 applic topical DAILY 06/13/25 06/13/25 History Probiotic 1 cap PO DAILY 06/13/25 06/13/25 History acetaminophen 500 mg tablet 1,000 mg PO DAILY PRN Pain 06/13/25 06/13/25 History (Tylenol Extra Strength) calcium polycarbophil 625 mg 1,250 mg PO DAILY 06/13/25 06/13/25 History tablet (FiberCon) Past Med/Surg History Problem List Osteoarthritis of right hip Iliotibial band syndrome, right leg 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 Paroxysmal atrial fibrillation Pulsatile tinnitus of both ears Sensorineural hearing loss (SNHL) of both ears Vaginal atrophy Osteoarthritis Palpitations no cardio Osteopenia 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 History of colon polyps 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- saw a neurosurgeon at [facility] - told nothing to worry about 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 current occupational status: retired How many Children do You have: 2 Other Information That Helps Us Care for You: No Feels Safe at Home: Yes Safety Concerns: Feels Safe At This Time Childhood Exposure to Second-Hand Smoke: Yes (father) Diet: regular caffeine: Yes during the past year weight has: remained stable Dental Care, Regularly: Yes Physical Activity Frequency: 5-6 Times per Week Seatbelt Use: always Sunscreen Use: Yes Assistive Devices: Glasses and Hearing Aid - Bilateral Review of Systems All systems reviewed & are unremarkable except as noted in HPI & below. Physical Exam On physical exam of the right hip, she has decreased range of motion. She has pain with internal/external rotation. All of her pain is located in the groin.. Constitutional WD/WN, vitals as above Eyes PERRL, conjunctivae normal, anicteric sclerae ENMT external ear and nose normal, oropharynx normal Neck trachea midline, no thyromegaly Respiratory normal respiratory effort Cardiovascular RRR, no murmur, no edema Gastrointestinal (Abdomen) normal bowel sounds, soft, nontender, no hepatosplenomegaly Psychiatric A+Ox3, euthymic affect Results & Data Results & Data Laboratory Results . Diagnostic Findings . PG Care Time/CCT Total # of Minutes Spent Total Time Spent with Patient: Total time spent is greater than 50% in coordination of care (as documented) at patient's floor/unit and/or counseling patient: Coding Level of Care Code None Diagnoses Osteoarthritis of right hip M16.11
[~2025-07-20 07:10] MED LIST: BUPIVACAINE 0.5 % 5 MG/1 ML PF 10ML VIAL ONE
[2025-07-20] MEDS ORDERED: MIDAZOLAM HCL 1 MG/ML 2ML VIAL ONE (07:24)
[2025-07-20] MEDS ORDERED: ONDANSETRON INJ 2 MG/ML 2 ML VIAL ONE (07:28)
[2025-07-20] MEDS ORDERED: PROPOFOL IV EMULSION 10 MG/ML 20 ML VIAL IV ONE (07:28)
[2025-07-20] MEDS ORDERED: LIDOCAINE 2% 2 ML VIAL/AMP(20MG/ML) INFIL ONE (07:28)
[2025-07-20] MEDS: GABAPENTIN 300 MG CAP PO SCH (07:50)
[2025-07-20] MEDS: FAMOTIDINE 20 MG TAB PO SCH (07:51)
[2025-07-20] MEDS: LR 500ML BOLUS, THEN 15ML/HR IV SCH (07:52)
[2025-07-20] MEDS: ACETAMINOPHEN 500 MG TAB PO SCH ×2 (07:52→13:21)
[2025-07-20] MEDS: dexAMETHasone**PF** 10 MG/ML VIAL IV SCH (07:55)
[2025-07-20] MEDS: LR 60ML/HR IV SCH (07:56)
--- NOTE | 2025-07-20 08:06 | History & Physical Bridge Note ---
Date of Service July 20, 2025 History & Physical Bridge Note I have examined the patient, reviewed the History & Physical and in the interval since the performance of the History & Physical I have noted the following changes of clinical significance: no changes noted
[2025-07-20] MEDS ORDERED: ONDANSETRON INJ 2 MG/ML 2 ML VIAL IV PRN ×2 (08:49→11:48)
[2025-07-20] MEDS ORDERED: ATROPINE SULFATE 0.1 MG/ML 10ML SYR IV PRN (08:49)
[2025-07-20] MEDS: TRANEXAMIC ACID / 0.7% NACL 1000MG/100ML BAG IV ONE (08:51)
[2025-07-20] MEDS: ORTHO JOINT ANESTHETIC ONE (09:38)
[2025-07-20] MEDS: TRANEXAMIC ACID 100 MG/ML 10 ML VIAL IV ONE (09:57)
[2025-07-20] MEDS: ROPIV 0.5% 246mg, Ketorolac 30mg, EPINEPHrine 0.5mg in NSS INFIL SCH (09:59)
--- NOTE | 2025-07-20 10:00 | Operative Report ---
PG Post Operative Report Pre & Post Diagnosis Operation Date: 07/20/25 09:00 Pre-Op Diagnosis: Osteoarthritis of right hip Post-Op Diagnosis: Osteoarthritis of right hip I identified the patient and participated in the time-out.: Yes Procedure Operation Date: 07/20/25 09:00 Actual Procedures p Right Anterior Total Hip Arthroplasty(Right) - Jesse Pack DO Surgeon Jesse Pack DO [employer] Jhonathan Lal PA-C Estimated Blood Loss 200 Findings Consistent with Post-Op Diagnosis Specimens Right femoral head Description of Procedure Implants used I used a ZimmerBiomet total hip arthroplasty system with a size 4 standard offset Z1 stem, a 50 mm G7 cup, an E1 polyethylene liner, a 36 mm ceramic head with a 0 neck. Anat arrived at the hospital for the above procedure. She was seen in the preoperative holding area and the operative extremity was identified and signed. She was given a spinal anesthetic, a preoperative antibiotic, and TXA. She was then taken back to the operating room and laid on the table in the supine position. She was given basic sedation. The operative leg was secured to a Puristst leg positioner. The hip was then prepped and draped in sterile fashion. A timeout was done and the patient and the operative extremity was properly identified. An anterior approach was used. Dissection was taken down through the fascia and the tensor muscle belly was retracted laterally and the rectus was retracted medially. The circumflex vessels were identified and ligated. The capsule was then incised and tagged for later repair. The femoral neck was then cut and the femoral head was removed. The acetabulum was exposed. Time was spent doing a complete circumferential labral release. Sequential reaming of the acetabulum up to a size 49 reamer was done. Final reamings were done under fluoroscopy to ensure appropriate version. A Biomet 50 mm G7 cup was then impacted into place. The E1 polyethylene liner was then snapped into place. Surrounding soft tissues were then injected with 100 cc of an orthopedic pain control cocktail. The proximal femur was then exposed. Sequential broaching up to a size 4 broach was done. Off that broach a size 36 head with a 0 neck was trialed. The hip was reduced and fluoroscopic images showed anatomic alignment of the implants in acceptable length. The broach was removed. The final size 4 standard offset Z1 stem was then impacted into place. A ceramic 36 mm head with a 0 neck was then impacted onto the stem and the hip was reduced. Final fluoroscopic images showed anatomic alignment of the hip. The capsule was then closed with #1 Vicryl suture. An Irrisept lavage was then done for 3 minutes. The joint was then irrigated with normal saline solution. The fascia was closed with #1 PDS suture. Skin was closed with 2-0 Vicryl, Emeka Zipline, and a Silverlon dressing. She was then transferred to a hospital bed and taken to the post anesthesia care unit in stable condition. She tolerated the procedure well. Jhonathan Lal PA-C, was present for the entire procedure. He was critical for patient positioning, prepping, draping, retraction exposure, wound closure and application of sterile dressing. I attest to the content of the Intraoperative Record and any orders documented therein. Any exceptions are noted below.
--- NOTE | 2025-07-20 10:23 | Fluoroscopy Report ---
FL hip RT 1V CLINICAL HISTORY: RT ANTERIOR THAright hip arthroplasty COMPARISON STUDY: Radiographs 05/22/2025 FLUOROSCOPY TIME: 14.6 seconds FLUOROSCOPY IMAGES: 1 EXPOSURE DOSE: 1.3475 mGy FINDINGS: Satisfactory alignment of the right hip arthroplasty. Expected postoperative soft tissue sw elling with deep tissue air. No acute fracture or unexpected opaque foreign body. IMPRESSION: Fluoroscopic assistance as above. ACT 112: Negative or not required by law. Electronically signed by: Scotty Camilo M.D. 07/20/2025 10:22 AM
--- NOTE | 2025-07-20 11:18 | XRay Report ---
XR hip 1V RT w pelvis HISTORY: 79 years-old Female IN PACU - Post Surgical right hip arthroplasty COMPARISON: 05/22/2025 TECHNIQUE: AP view of the pelvis with crosstable lateral view of the right hip FINDINGS: Moderate left hip osteoarthritis. Right hip arthroplasty demonstrates satisfactory alignment. No acut e fracture or unexpected opaque foreign body. Expected postoperative changes with deep tissue air. IMPRESSION: Satisfactory alignment of the right hip arthroplasty. ACT 112: Negative or not required by law. The above report was generated using voice recognition software. It may contain grammatical, syntax o r spelling errors. Electronically signed by: Scotty Camilo M.D. 07/20/2025 11:17 AM
[2025-07-20] MEDS ORDERED: METOCLOPRAMIDE HCL INJ 5 MG/ML 2 ML VIAL IV PRN (11:48)
[2025-07-20] MEDS ORDERED: HYDROmorphone INJ 0.5 MG/0.5 ML SYR IV PRN (11:48)
[2025-07-20] MEDS ORDERED: NALOXONE HCL 0.4 MG/1 ML VIAL/CARP IV PRN (11:48)
[2025-07-20] MEDS ORDERED: diphenhydrAMINE Capsule 25 MG CAP PO PRN (11:48)
[2025-07-20] MEDS ORDERED: MAGNESIUM HYDROXIDE SUSP 30 ML UDC PO PRN (11:48)
[2025-07-20] MEDS: SODIUM CHLORIDE 0.9% 1,000 ML IV SCH (13:21)
[2025-07-20] MEDS: KETOROLAC TROMETHAMINE 15 MG/ML VIAL IV SCH (13:24)
--- NOTE | 2025-07-20 14:54 | Anesthesiology Progress Note ---
Date of Service July 20, 2025 Anesthesia Post Procedure Vital Signs Vital Signs: Temp Pulse Pulse Resp BP BP Pulse Ox 07/20/25 13:27 97.5 F L 56 L 18 147/74 H 99 07/20/25 12:42 97.7 F 58 L 18 132/71 98 07/20/25 12:13 97.4 F L 59 L 16 119/58 L 98 07/20/25 11:32 97.9 F 61 15 130/58 L 97 07/20/25 11:15 97.3 F L 59 L 14 119/65 95 07/20/25 11:05 64 14 127/66 97 07/20/25 10:55 67 16 123/64 96 07/20/25 10:45 63 14 122/61 97 07/20/25 10:35 66 18 117/60 98 07/20/25 10:25 97.2 F L 71 12 120/57 L 100 07/20/25 07:56 97.9 F 49 L 18 152/72 H 97 O2 Del Method O2 Flow Rate 07/20/25 13:27 Room Air 07/20/25 12:42 Room Air 07/20/25 12:13 Room Air 07/20/25 11:32 Room Air 07/20/25 11:15 Room Air 07/20/25 11:05 Room Air 07/20/25 10:55 Room Air 07/20/25 10:45 Room Air 07/20/25 10:35 Oxymask 4 07/20/25 10:25 Oxymask 6 07/20/25 07:56 Room Air Transfer of Care Handoff Completed per policy Notes Mental Status: alert / awake / arousable and participated in evaluation Patient Amnestic to Procedure: Yes Nausea / Vomiting: adequately controlled Pain: adequately controlled Airway Patency, RR, SpO2: stable & adequate BP & HR: stable & adequate Hydration State: stable & adequate Neuraxial Anesthesia: was administered and sensory block is resolving Anesthetic Complications: no major complications apparent and Pt Satisfied with anesthetic care
[2025-07-20] MEDS: DOCUSATE SODIUM 100 MG CAP PO SCH (20:52)
[2025-07-20] MEDS: METOPROLOL TARTRATE 25 MG TAB PO SCH (20:52)
[2025-07-21 06:07] VITALS: O2SAT 97
[2025-07-21] MEDS: APIXABAN 5 MG TABLET PO SCH (08:29)
[2025-07-21] MEDS: MULTIVITAMIN TAB PO SCH (08:29)
[2025-07-21] MEDS: CALCIUM POLYCARBOPHIL 625MG TAB PO SCH (08:31)
--- NOTE | 2025-07-21 08:43 | Orthopedic Progress Note ---
Date of Service July 21, 2025 Assessment & Plan (1) S/P total right hip arthroplasty: * Continue Current Treatment * Disposition: home * Daily treatment: Physical Therapy/ Occupational Therapy per protocol * Weight bearing status: WBAT, no hip precautions * Continue to monitor for ABLA * Pain control * DVT prophylaxis, resume home dose Eliquis * Office/hospital f/u 2 weeks for progress check and staple/suture removal * Plan for discharge today pending PT/OT clearance Subjective . Active Problems: S/p R CLARI POD 1 79 y/o female s/p right CLARI. Doing well overall, pain managed and improved function. Denies fever/chills, chest pain/SOB, nausea/vomiting. Otherwise no complaints. Review of Systems All systems reviewed & are unremarkable except as noted in HPI & below. Physical Exam . * General: Alert and oriented, no acute distress * Constitutional: well-developed, well-nourished. * Respiratory: Normal respiratory effort, no distress * Gastrointestinal: No tenderness to palpation, no rigidity or guarding. * Skin: No rash or lesion. * Neurologic: Grossly normal * Musculoskeletal: right hip surgical dressing CDI, not removed for exam. Otherwise no obvious deformity or overlying skin changes. Diffuse TTP proximal thigh and hip region. Otherwise no specific tenderness of distal thigh, lower leg, foot/ankle. AROM hip flexion intact. AROM foot/ankle intact. Sensation intact plantar/dorsal foot. Brisk capillary refill. Results & Data Results & Data Laboratory Results . Diagnostic Findings . Hip X-Ray 07/20/25 09:00 FL hip RT 1V CLINICAL HISTORY: RT ANTERIOR THAright hip arthroplasty COMPARISON STUDY: Radiographs 05/22/2025 FLUOROSCOPY TIME: 14.6 seconds FLUOROSCOPY IMAGES: 1 EXPOSURE DOSE: 1.3475 mGy FINDINGS: Satisfactory alignment of the right hip arthroplasty. Expected postoperative soft tissue swelling with deep tissue air. No acute fracture or unexpected opaque foreign body. IMPRESSION: Fluoroscopic assistance as above. ACT 112: Negative or not required by law. Electronically signed by: Scotty Camilo M.D. 07/20/2025 10:22 AM Hip/Pelvis X-Ray 07/20/25 10:12 XR hip 1V RT w pelvis HISTORY: 79 years-old Female IN PACU - Post Surgical right hip arthroplasty COMPARISON: 05/22/2025 TECHNIQUE: AP view of the pelvis with crosstable lateral view of the right hip FINDINGS: Moderate left hip osteoarthritis. Right hip arthroplasty demonstrates satisfactory alignment. No acute fracture or unexpected opaque foreign body. Expected postoperative changes with deep tissue air. IMPRESSION: Satisfactory alignment of the right hip arthroplasty. ACT 112: Negative or not required by law. The above report was generated using voice recognition software. It may contain grammatical, syntax or spelling errors. Electronically signed by: Scotty Camilo M.D. 07/20/2025 11:17 AM PG Care Time/CCT Total # of Minutes Spent Total Time Spent with Patient: Total time spent is greater than 50% in coordination of care (as documented) at patient's floor/unit and/or counseling patient: Coding Level of Care Code 46408 Post Operative Follow-Up Diagnoses S/P total right hip arthroplasty Z96.641
[2025-07-21 09:26] VITALS: BP 144/69; PULSE 61; RESP 16; TEMP 97.9
== END 2025-07-21 11:37 | disposition home or self-care (01) ==
LOC: ASU 07:10 → 3W 07:10

== ENCOUNTER 2025-08-06 23:35 | Observation (INO) ==
[2025-08-06 23:41] VITALS: TEMP 97.9
[2025-08-06] MEDS: METOPROLOL TARTRATE 1 MG/ML VIAL IV STA (23:58)
[2025-08-07] MEDS: SODIUM CHLORIDE 0.9% 1,000 ML IV SCH
--- NOTE | 2025-08-07 00:01 | Emergency Department Note ---
Impression & Plan Palpitations, Atrial fibrillation with rapid ventricular response ED Provider Note ED Provider Note NAME: MALCOLM FROST AGE:79 SEX: Female : 1945 ARRIVES VIA: Private vehicle INFORMANT: Patient ED PROVIDER(s): Emma Blevins DO CHIEF COMPLAINT: Palpitations, elevated heart rate HPI: This is an 79-year-old female who presents the emergency department due to concern for palpitations noting an elevated heart rate at home on her watch. She states EKG she took using her watch and she was in atrial fibrillation. Patient states she does have a prior history of A-fib and can tell when she is in or out of it. She does follow with Dr. Leon of cardiology. She states she takes metoprolol twice a day and does take Eliquis additionally. She denies missing or skipping any doses. She did have a hip replacement performed the beginning of July but feels she has been healing and recovering well and is scheduled to see orthopedics in follow-up again tomorrow. She states no recent fevers, chills, or URI symptoms. No change in bowel or bladder function. No recent leg swelling. She feels she is staying well-hydrated. She states she has previously had episodes where she will go into atrial fibrillation and they have a hard time "getting her out of it". PAST MEDICAL HISTORY:See Below PAST SURGICAL HISTORY:See Below FAMILY HISTORY:See Below SOCIAL HISTORY:See Below HOME MEDICATIONS:See Below ALLERGIES:See Below VITALS:See Below PHYSICAL EXAMINATION: GENERAL: alert, well appearing, well nourished, no distress, non-toxic EYE EXAM: normal conjunctiva, PERRL and EOM's grossly intact OROPHARYNX: no exudate, no erythema, lips, buccal mucosa, and tongue normal and mucous membranes are moist NECK: supple, no nuchal rigidity, no adenopathy, non-tender LUNGS: Clear to auscultation. Normal chest wall mechanics, no w/r/r HEART: no murmurs, S1 normal and S2 normal ABDOMEN: abdomen soft, non-tender, normo-active bowel sounds, no masses, no rebound or guarding. BACK: Back is symmetrical on inspection and there is no deformity, no midline tenderness, no CVA tenderness. SKIN: no rashes, petechiae, orbruising UPPER EXTREMITIES: upper extremities are grossly normal. FROM, nml pulses b/l. LOWER EXTREMITIES: No pitting edema. FROM, nml pulses b/l. NEURO EXAM: Normal sensorium, cranial nerves II-XII grossly intact, normal speech, no facial droop,nogross weakness of arms, no gross weakness of legs. Gross sensation intact. No ataxia. Vital Signs: reviewed and remarkable Differential Diagnosis: Dysrhythmia, PVCs, PACs, electrolyte abnormality, thyroid storm, ACS, PE, dehydration, anxiety, medication ADR, occult infection, as well as others were considered MEDICAL DECISION MAKING: This is an 79-year-old female who presents to the emergency department due to concern for palpitations and recurrent atrial fibrillation. Patient with a known history of paroxysmal atrial fibrillation. She was afebrile, tachycardic, but other vital signs stable. Labs drawn and sent, IV established, EKG performed and interpreted at bedside, and patient placed on telemetry. Given known history of A-fib and use of metoprolol daily, patient was given additional IV metoprolol. While her heart rate would improve she remained in A-fib and was still tachycardic. She did not have any improvement of her sense of palpitations after 3 separate doses. She was given oral potassium and IV magnesium for optimization. Patient then given a dose of IV diltiazem. She had further improvement of her heart rate however was still on A-fib and still felt a sense of palpitations. In light of this case discussed with hospitalist team for additional evaluation and management. Patient was noted to be mildly more anemic compared to prior, I suspect this may be due to recent surgical intervention. Patient denied any other concerning bleeding. No evidence for infectious etiology or electrolyte abnormality at this time. I do not suspect occult PE as patient states she has been compliant with her Eliquis. Consultation(s): 0445: Discussed with Dr. Freeman, [place] hospitalist team, for additional evaluation and mgmt. ER Treatment Provided: See below Diagnostics Interpreted By Me: -ECG: Atrial fibrillation rate of 147, normal axis, normal intervals, nonspecific ST/T wave changes -Cardiac Monitoring: An order was placed for continuous cardiac monitoring. The monitor shows a rate of 135 with a.fib rhythm. -Laboratory studies: As stated above and show below. 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 [place] Cardiology Dr Leon Osteopenia History of palpitations [facility] [place] Cardiology Dr Leon Osteoarthritis Elevated TSH pt unsure, 06/2025 WNL TSH and T4 Bilateral hearing loss hearing aids History of COVID-19 (03/25/24) not hospitalized - resolved Rosacea Surgical History Hx of bilateral cataract extraction (2022) History of tooth extraction H/O breast surgery x3 biopsies - benign, calcifications. 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 current occupational status: retired How many Children do You have: 2 Feels Safe at Home: Yes Safety Concerns: Feels Safe At This Time Childhood Exposure to Second-Hand Smoke: Yes (father) Diet: regular caffeine: Yes during the past year weight has: remained stable Dental Care, Regularly: Yes Physical Activity Frequency: 5-6 Times per Week Seatbelt Use: always Sunscreen Use: Yes Assistive Devices: Walker Allergies Allergies Allergy/AdvReac Type Severity Reaction Status Date / Time No Known Drug Allergies Allergy Unknown Verified 07/20/25 07:34 milk AdvReac Intermediate Gastrointestinal Verified 07/20/25 07:34 Upset Home Meds Home Medications Medication Instructions Recorded Confirmed metronidazole 0.75 % topical cream 1 applic topical DAILY PRN 07/13/22 07/20/25 Rash/Rosacea triamcinolone acetonide 0.025 % 1 applic topical DAILY PRN 07/13/22 07/20/25 topical cream Rash/Eczema Colorproof Biorepair Hair Serum 1 applic topical DAILY 06/13/25 07/20/25 Probiotic 1 cap PO DAILY 06/13/25 07/20/25 acetaminophen 500 mg tablet 1,000 mg PO DAILY PRN Pain 06/13/25 07/20/25 (Tylenol Extra Strength) calcium polycarbophil 625 mg 1,250 mg PO DAILY 06/13/25 07/20/25 tablet (FiberCon) Previous Rx's Medication Instructions Recorded tramadol 50 mg tablet 50 mg PO Q8H PRN pain #15 tabs 12/19/24 apixaban 5 mg tablet (Eliquis) 5 mg PO BID #180 tabs 04/12/25 metoprolol tartrate 25 mg tablet 25 mg PO BID #180 tabs 04/12/25 cefadroxil 500 mg capsule 500 mg PO BID #20 caps 07/20/25 oxycodone 5 mg tablet 5 mg PO Q6H PRN pain #30 tabs 07/20/25 Results & Data (ED) Vital Signs Vital Signs - 24 hr 08/06/25 23:37 08/06/25 23:54 08/06/25 23:58 Temperature 36.6 C Temperature Source Temporal Artery Scan Pulse Rate 147 H 122 H 138 H Pulse Rate [Apical] Pulse Strength [Apical] Respiratory Rate 19 Respiratory Effort / Characteristics Non-Labored Spontaneous Respiratory Depth Normal Respiratory Pattern Blood Pressure 131/67 126/100 Blood Pressure [Right Arm] Blood Pressure Mean 88 Blood Pressure Mean [Right Arm] Blood Pressure Position [Right Arm] Pulse Oximetry 98 Oxygen Delivery Method Room Air Sepsis Recent Fever Within 48 Hours No Sepsis New/Unexplained Change in Mental Status N/A Sepsis Action Taken by Nursing No Action Required 08/07/25 00:28 08/07/25 00:32 08/07/25 00:33 Temperature Temperature Source Pulse Rate 126 H 132 H Pulse Rate [Apical] 124 H Pulse Strength [Apical] Respiratory Rate 18 Respiratory Effort / Characteristics Respiratory Depth Respiratory Pattern Blood Pressure 125/79 Blood Pressure [Right Arm] 106/77 Blood Pressure Mean Blood Pressure Mean [Right Arm] 86 Blood Pressure Position [Right Arm] Pulse Oximetry 96 Oxygen Delivery Method Room Air Sepsis Recent Fever Within 48 Hours Sepsis New/Unexplained Change in Mental Status Sepsis Action Taken by Nursing 08/07/25 00:52 08/07/25 01:16 08/07/25 01:46 Temperature Temperature Source Pulse Rate 122 H Pulse Rate [Apical] 119 H 128 H Pulse Strength [Apical] Respiratory Rate 18 18 Respiratory Effort / Characteristics Respiratory Depth Respiratory Pattern Blood Pressure 106/77 Blood Pressure [Right Arm] 125/83 125/83 Blood Pressure Mean Blood Pressure Mean [Right Arm] 97 97 Blood Pressure Position [Right Arm] Pulse Oximetry 97 96 Oxygen Delivery Method Room Air Sepsis Recent Fever Within 48 Hours Sepsis New/Unexplained Change in Mental Status Sepsis Action Taken by Nursing 08/07/25 01:51 08/07/25 02:25 08/07/25 03:00 Temperature Temperature Source Pulse Rate 125 H 118 H Pulse Rate [Apical] 121 H Pulse Strength [Apical] Respiratory Rate 18 Respiratory Effort / Characteristics Respiratory Depth Respiratory Pattern Blood Pressure 125/83 Blood Pressure [Right Arm] 144/108 H Blood Pressure Mean Blood Pressure Mean [Right Arm] 120 Blood Pressure Position [Right Arm] Pulse Oximetry 99 Oxygen Delivery Method Room Air Sepsis Recent Fever Within 48 Hours Sepsis New/Unexplained Change in Mental Status Sepsis Action Taken by Nursing 08/07/25 03:43 08/07/25 03:59 08/07/25 04:34 Temperature Temperature Source Pulse Rate 124 H Pulse Rate [Apical] 79 111 H Pulse Strength [Apical] Respiratory Rate 16 18 Respiratory Effort / Characteristics Respiratory Depth Respiratory Pattern Blood Pressure Blood Pressure [Right Arm] 136/95 111/79 Blood Pressure Mean Blood Pressure Mean [Right Arm] 108 89 Blood Pressure Position [Right Arm] Pulse Oximetry 95 95 Oxygen Delivery Method Room Air Room Air Sepsis Recent Fever Within 48 Hours Sepsis New/Unexplained Change in Mental Status Sepsis Action Taken by Nursing 08/07/25 05:00 Temperature Temperature Source Pulse Rate Pulse Rate [Apical] 65 Pulse Strength [Apical] Normal Respiratory Rate 20 Respiratory Effort / Characteristics Non-Labored Spontaneous Respiratory Depth Respiratory Pattern Regular Blood Pressure Blood Pressure [Right Arm] 123/62 Blood Pressure Mean Blood Pressure Mean [Right Arm] 82 Blood Pressure Position [Right Arm] Lying Pulse Oximetry 95 Oxygen Delivery Method Room Air Sepsis Recent Fever Within 48 Hours Sepsis New/Unexplained Change in Mental Status Sepsis Action Taken by Nursing Laboratory Data 08/06/25 23:49 08/06/25 23:49 Lab Results 08/06/25 Range/Units 23:49 WBC 10.92 H (4.8-10.8) K/ul RBC 3.55 L (4.20-5.40) M/uL Hgb 11.0 L (12.0-16.0) g/dL Hct 33.0 L (37.0-47.0) % MCV 93.0 (80.0-100.0) fL MCH 31.0 (25.0-34.0) pg MCHC 33.3 (32.0-36.0) g/dL RDW Std Deviation 42.6 (36.4-46.3) fL RDW Coeff of Symone 12.4 (11.5-14.5) % Plt Count 407 H (130-400) K/uL MPV 8.6 L (9.4-12.4) fL Immature Gran % (Auto) 0.5 % Neut % (Auto) 68.0 % Lymph % (Auto) 15.9 % [place] % (Auto) 10.2 % Eos % (Auto) 4.2 % Baso % (Auto) 1.2 % Neut # (Auto) 7.42 H (1.40-6.50) K/uL Lymph # (Auto) 1.74 (1.20-3.40) K/uL [place] # (Auto) 1.11 H (0.11-0.59) K/uL Eos # (Auto) 0.46 (0.00-0.50) K/uL Baso # (Auto) 0.13 (0.00-0.20) K/uL Immature Gran # (Auto) 0.06 (0.01-0.20) K/uL PT 10.2 (9.0-12.0) Seconds INR 1.0 (0.9-1.1) Sodium 134 L (136-145) mmol/L Potassium 3.5 (3.5-5.1) mmol/L Chloride 99 (98-107) mmol/L Carbon Dioxide 26 (21-32) mmol/L Anion Gap 9 (3-11) BUN 19 (6-23) mg/dl Creatinine 0.68 (0.6-1.2) mg/dl Est Cr Clr Drug Dosing 57.0 ml/min eGFR 87.99 BUN/Creatinine Ratio 27.9 H (10-20) Glucose 131 H (70-99(Fasting)) mg/dl Calcium 9.3 (8.6-10.3) mg/dl Magnesium 1.8 (1.7-2.4) mg/dl Total Bilirubin 0.3 (0.2-1.0) mg/dl AST 18 (13-39) U/L ALT 15 (7-52) U/L Alkaline Phosphatase 65 (34-104) U/L Troponin I High Sens 14.4 H (0-14) pg/ml Total Protein 7.4 (6.0-8.3) gm/dl Albumin 4.2 (3.4-5.0) gm/dl Globulin 3.2 (2.5-4.0) gm/dl Albumin/Globulin Ratio 1.3 (0.9-2) TSH 2.205 (0.300-4.500) uIu/ml Administered Medications Lactated Ringer's (Lr) 1,000 mls @ 80 mls/hr IV .[id number] DAVIS Stop: 08/07/25 11:44 Last Admin: 08/07/25 06:03 Dose: 80 mls/hr Documented By: CDM Discontinued Medications Diltiazem HCl (Diltiazem Hcl 5 Mg/Ml 5 Ml Vial) 10 mg IV NOW STA Stop: 08/07/25 03:26 Last Admin: 08/07/25 03:49 Dose: 10 mg Documented By: LAF Co-signed By: tcm Sodium Chloride (Nss) 1,000 mls @ 125 mls/hr IV .Q8H DAVIS Stop: 08/09/25 23:44 Last Infusion: 08/07/25 05:56 Dose: Infused Documented By: Admin: 08/07/25 00:00 Dose: 125 mls/hr Documented By: HAL Magnesium Sulfate/Dextrose (Magnesium Sulfate / D5w) 1 gm in 100 mls @ 100 mls/hr IV NOW STA Stop: 08/07/25 01:31 Last Infusion: 08/07/25 02:25 Dose: Infused Documented By: Admin: 08/07/25 00:50 Dose: 100 mls/hr Documented By: HAL Metoprolol Tartrate (Metoprolol Tartrate 1 Mg/Ml Vial) 5 mg IV NOW STA Stop: 08/06/25 23:55 Last Admin: 08/06/25 23:58 Dose: 5 mg Documented By: HAL Metoprolol Tartrate (Metoprolol Tartrate 1 Mg/Ml Vial) 5 mg IV NOW STA Stop: 08/07/25 00:25 Last Admin: 08/07/25 00:28 Dose: 5 mg Documented By: HAL Metoprolol Tartrate (Metoprolol Tartrate 1 Mg/Ml Vial) 5 mg IV NOW STA Stop: 08/07/25 01:48 Last Admin: 08/07/25 01:51 Dose: 5 mg Documented By: HAL Morphine Sulfate (Morphine Sulfate 4 Mg/Ml 1 Ml Carp\\Vial) 4 mg IV NOW STA Stop: 08/07/25 03:53 Last Admin: 08/07/25 03:59 Dose: Not Given Documented By: HAL Ondansetron HCl (Ondansetron Inj 2 Mg/Ml 2 Ml Vial) 4 mg IV NOW STA Stop: 08/07/25 03:53 Last Admin: 08/07/25 03:59 Dose: Not Given Documented By: HAL Potassium Chloride (Potassium Chloride Crtab 20 Meq Tabcr) 40 meq PO NOW STA Stop: 08/07/25 00:32 Last Admin: 08/07/25 00:49 Dose: 40 meq Documented By: HAL Discharge Plan Visit Data Chief Complaint: Cardiac Assessment Stated Complaint: having afib ED Provider: Emma Blevins Discharge Problem: Palpitations, Atrial fibrillation with rapid ventricular response Patient Disposition: Being Evaluated by Hospitalist Condition: Fair Discharge Instructions Interventions: ED Discharge Assessment Last Done: 08/07/25 05:45
[2025-08-07 00:07] LABS: Hematocrit (blood only) 33.0 % (37.0-47.0); Hemoglobin 11.0 g/dL (12.0-16.0); Immature Granulocytes # (auto) 0.06 K/uL (0.01-0.20); Immature Granulocytes % (auto) 0.5 %; Mean Corpuscular Hemoglobin 31.0 pg (25.0-34.0); Mean Corpuscular Volume 93.0 fL (80.0-100.0); Platelet Count 407 K/uL (130-400); RDW Standard Deviation 42.6 fL (36.4-46.3); Red Blood Count 3.55 M/uL (4.20-5.40); White Blood Count 10.92 K/ul (4.8-10.8)
[2025-08-07 00:24] LABS: Alanine Aminotransferase 15.0 U/L (7-52); Albumin Globulin Ratio 1.3 (0.9-2); Albumin Level 4.2 gm/dl (3.4-5.0); Alkaline Phosphatase 65.0 U/L (34-104); Anion Gap 9.0 (3-11); Bilirubin,Total 0.3 mg/dl (0.2-1.0); Blood Urea Nitrogen 19.0 mg/dl (6-23); Calcium 9.3 mg/dl (8.6-10.3); Carbon Dioxide 26.0 mmol/L (21-32); Chloride 99.0 mmol/L (98-107); Creatinine Clr Calc Pharmacy 57.0 ml/min; Globulin 3.2 gm/dl (2.5-4.0); Glucose 131.0 mg/dl (70-99(Fasting)); Magnesium 1.8 mg/dl (1.7-2.4); Potassium 3.5 mmol/L (3.5-5.1); Sodium 134.0 mmol/L (136-145); Total Protein 7.4 gm/dl (6.0-8.3)
[2025-08-07] MEDS: METOPROLOL TARTRATE 1 MG/ML VIAL IV STA ×2 (00:28→01:51)
[2025-08-07 00:33] LABS: INR 1.0 (0.9-1.1); Prothrombin Time 10.2 Seconds (9.0-12.0)
[2025-08-07 00:39] LABS: Thyroid Stimulating Hormone 2.205 uIu/ml (0.300-4.500)
[2025-08-07] MEDS: POTASSIUM CHLORIDE CRTAB 20 MEQ TABCR PO STA (00:49)
[2025-08-07] MEDS: MAGNESIUM SULFATE / D5W 1 GM/100 ML BAG IV STA (00:50)
[2025-08-07] MEDS: MoRPHine SULFATE 4 MG/ML 1 ML CARP\\VIAL IV STA (03:59)
[2025-08-07] MEDS: ONDANSETRON INJ 2 MG/ML 2 ML VIAL IV STA (03:59)
--- NOTE | 2025-08-07 04:43 | History & Physical Report ---
Date of Service August 07, 2025 Assessment & Plan (1) Atrial fibrillation with rapid ventricular response: Plan 79-year-old female PMHx osteopenia, OA, PAF on Eliquis, saccular aneurysm, and IT band syndrome of R leg presenting for concerning of being in Afib. Her evaluation is with mild leukocytosis 10.92, H/H 11.0/33.0. Sodium appears falsely low secondary to hyperglycemia. Troponin with mild elevation, likely in setting of tachycardia. Admission for Afib RVR. #Afib with RVR H/o PAF, on Eliquis and metoprolol. Prior h/o RVR, required diltiazem to break. No recent illness, admits to some stress around the holidays. Follows with cardiology, most recent visit 05/07/2025. Admission for further medical management of Afib with RVR, maximize electrolytes. - CBC leukocytosis 10k, H/H 11/33; PT/INR WNL; CMP Na 134, glucose 131; Mag 1.8 - repeat BMP - Troponin 14.4, pending repeat - likely in setting of tachycardia - TSH 2.205 - EKG A-fib 70 bpm - Echo 12/2023, pending repeat - IVF LR @ 80 mL/hr - Continue home meds for now- Eliquis, metoprolol - Zofran prn N/V - Diltiazem prn - Cardio consulted, ? medication adjustment to [facility] - appreciate input and recs #S/p total R hip arthroplasty - Completed 07/20/2025; pain well-controlled, reports not taking opioids at this time; sutures to be removed 08/07/2025 Dispo: Obs, PCU VTE Prophylaxis: On Eliquis - continue This document was dictated utilizing [employer]. Please excuse any grammatical errors that may be secondary to use of this software. Admission and Anticipated Discharge Date Admission Date: 08/07/2025 History of Present Illness Chief Complaint: Palpitations Primary Care Provider: Sandra Cason MD 79-year-old female PMHx osteopenia, OA, PAF on Eliquis, saccular aneurysm, and IT band syndrome of R leg presenting for concerning of being in Afib. Reports similar episode of palpitations sensation with fast heart rate in December 2023. States that she was asleep the evening of arrival and she woke up noticing that her heart rate was fast. She checked her watch which shows an EKG with live tracing of her heart and noticed that it was fast and read as A-fib. Patient also states that she could hear pulsating in her ears suggestive of an abnormal heartbeat. She has palpitations at baseline, these felt more intense in nature. No SOB, dizziness, or additional concerns. No recent illness, no F/C. Denies chest pain, SOB, abdominal pain, N/V/D/C, numbness/tingling, URI symptoms, LUTS, weakness, syncope, or falls. She has been taking her medications as prescribed. No known triggers identified. Follows with cardiology as scheduled. She had a recent R hip arthroplasty beginning of July, sutures are to be removed 08/07/2025. ED evaluation reveals CBC with mild leukocytosis 10.92, H/H 11/33, plt 407; PT/INR WNL; CMP Na 134, ratio 27.9, glucose 131; trop 14.4; TSH 2.205; EKG A-fib at 79 bpm.; Provided with 1L NSS, zofran 4mg IV, morphine 4mg IV, Lopressor 5mg IV x 3, mag sulfate 1g IV, KCl 40 mEq, and diltiazem 10mg IV in ED. Please see Dr. Freeman attestation for adjustments/additions to treatment plan. Allergies Allergy/AdvReac Type Severity Reaction Status Date / Time No Known Drug Allergies Allergy Unknown Verified 07/20/25 07:34 milk AdvReac Intermediate Gastrointestinal Verified 07/20/25 07:34 Upset Home Medications Medication Instructions Recorded Confirmed Type metronidazole 0.75 % topical cream 1 applic topical DAILY PRN 07/13/22 07/20/25 History Rash/Rosacea triamcinolone acetonide 0.025 % 1 applic topical DAILY PRN 07/13/22 07/20/25 History topical cream Rash/Eczema tramadol 50 mg tablet 50 mg PO Q8H PRN pain #15 tabs 12/19/24 07/20/25 Rx apixaban 5 mg tablet (Eliquis) 5 mg PO BID #180 tabs 04/12/25 07/20/25 Rx metoprolol tartrate 25 mg tablet 25 mg PO BID #180 tabs 04/12/25 07/20/25 Rx Colorproof Biorepair Hair Serum 1 applic topical DAILY 06/13/25 07/20/25 History Probiotic 1 cap PO DAILY 06/13/25 07/20/25 History acetaminophen 500 mg tablet 1,000 mg PO DAILY PRN Pain 06/13/25 07/20/25 History (Tylenol Extra Strength) calcium polycarbophil 625 mg 1,250 mg PO DAILY 06/13/25 07/20/25 History tablet (FiberCon) cefadroxil 500 mg capsule 500 mg PO BID #20 caps 07/20/25 Rx oxycodone 5 mg tablet 5 mg PO Q6H PRN pain #30 tabs 07/20/25 Rx Past Med/Surg History Problem List Atrial fibrillation with rapid ventricular response (Acute) Palpitations (Acute) S/P total right hip arthroplasty Iliotibial band syndrome, right leg 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 Paroxysmal atrial fibrillation Pulsatile tinnitus of both ears Sensorineural hearing loss (SNHL) of both ears Vaginal atrophy Osteoarthritis Palpitations no cardio Osteopenia Medical History senior care current use of anticoagulant Eliquis History of colon polyps 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- saw a neurosurgeon at [facility] - told nothing to worry about 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) found by [facility]- saw a neurosurgeon at [facility] - told nothing to worry about Paroxysmal atrial fibrillation Eliquis - no cardio[place] [facility] [place] Osteopenia History of [place]pit[place] [facility] [place] Osteoarthritis Elevated TSH pt unsure, 06/2025 WNL TSH and T4 Bilateral hearing loss hearing aids History of COVID-19 (03/25/24) not hospitalized - resolved Rosacea Surgical History Hx of bilateral cataract extraction (2022) History of tooth extraction H/O breast surgery x3 biopsies - benign, calcifications. 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 current occupational status: retired How many Children do You have: 2 Feels Safe at Home: Yes Safety Concerns: Feels Safe At This Time Childhood Exposure to Second-Hand Smoke: Yes (father) Diet: regular caffeine: Yes during the past year weight has: remained stable Dental Care, Regularly: Yes Physical Activity Frequency: 5-6 Times per Week Seatbelt Use: always Sunscreen Use: Yes Assistive Devices: Walker Review of Systems Review of Systems: All systems reviewed & are unremarkable except as noted in Subjective Physical Exam Physical Exam: General: No acute distress Skin: Warm and dry Head: Normocephalic, atraumatic Eyes: PERRL, conjunctivae clear, sclera non-icteric; wearing glasses ENT: External ear and ear canal without swelling; nose atraumatic; good dentition, tongue normal appearance, pharynx normal Neck: Supple, no LAD Cardio: RRR, no M/G/R, S1 and S2 normal Resp: No respiratory distress, Lungs CTA in all lobes bilaterally, no wheezes, rales, or rhonchi Abdomen: Soft, symmetric, nontender; No masses or hepatosplenomegaly; Bowel sounds normoactive MSK: No deformities; pulses palpable and equal; no edema. Neuro: Awake, alert; Sensation intact bilaterally; CN grossly intact Psych: Appropriate mood and affect; good judgement and insight. Results & Data Results & Data Vital Signs (Past 12 Hours) Vital Signs Temp Pulse Pulse Resp BP BP Pulse Ox 08/07/25 04:34 111 H 18 111/79 95 08/07/25 03:59 79 16 136/95 95 08/07/25 03:43 124 H 08/07/25 03:00 121 H 18 144/108 H 99 08/07/25 02:25 118 H 08/07/25 01:51 125 H 125/83 08/07/25 01:46 128 H 18 125/83 96 08/07/25 01:16 119 H 18 125/83 97 08/07/25 00:52 122 H 106/77 08/07/25 00:33 124 H 18 106/77 96 08/07/25 00:32 132 H 08/07/25 00:28 126 H 125/79 08/06/25 23:58 138 H 126/100 08/06/25 23:54 122 H 08/06/25 23:37 36.6 C 147 H 19 131/67 98 O2 Del Method 08/07/25 04:34 Room Air 08/07/25 03:59 Room Air 08/07/25 03:43 08/07/25 03:00 Room Air 08/07/25 02:25 08/07/25 01:51 08/07/25 01:46 Room Air 08/07/25 01:16 08/07/25 00:52 08/07/25 00:33 Room Air 08/07/25 00:32 08/07/25 00:28 08/06/25 23:58 08/06/25 23:54 08/06/25 23:37 Room Air Laboratory Results 08/06/25 23:49 WBC 10.92 H RBC 3.55 L Hgb 11.0 L Hct 33.0 L MCV 93.0 MCH 31.0 MCHC 33.3 RDW Std Deviation 42.6 RDW Coeff of Symone 12.4 Plt Count 407 H MPV 8.6 L Immature Gran % (Auto) 0.5 Neut % (Auto) 68.0 Lymph % (Auto) 15.9 [place] % (Auto) 10.2 Eos % (Auto) 4.2 Baso % (Auto) 1.2 Neut # (Auto) 7.42 H Lymph # (Auto) 1.74 [place] # (Auto) 1.11 H Eos # (Auto) 0.46 Baso # (Auto) 0.13 Immature Gran # (Auto) 0.06 PT 10.2 INR 1.0 Sodium 134 L Potassium 3.5 Chloride 99 Carbon Dioxide 26 Anion Gap 9 BUN 19 Creatinine 0.68 Est Cr Clr Drug Dosing 57.0 eGFR 87.99 BUN/Creatinine Ratio 27.9 H Glucose 131 H Calcium 9.3 Magnesium 1.8 Total Bilirubin 0.3 AST 18 ALT 15 Alkaline Phosphatase 65 Troponin I High Sens 14.4 H Total Protein 7.4 Albumin 4.2 Globulin 3.2 Albumin/Globulin Ratio 1.3 TSH 2.205 Medications Administered 1L NSS Morphine 4mg IV Zofran 4mg IV Lopressor 5mg IV x 3 Diltiazem 10mg IV Mag sulfate 1g IV KCl 40 mEq po ECG Additional Comments: A-fib 79 bpm, QRS 76, QT/QTc 340/389, PRT*/38 Code Status & VTE Plan Code Status Full Supervising Physician Co-Signing Physician Notes Attending addendum: I have physically seen this patient, have supervised the VAN's activities, and agree with the H&P unless as otherwise noted. Assessment and Plan: The patient is an 79-year-old female with past medical history including osteopenia, osteoarthritis, paroxysmal atrial fibrillation on Eliquis, saccular aneurysm, and right leg IT band syndrome. She presents to the emergency department with palpitations, and concern regarding recurrence of atrial fibrillation with RVR. Significant laboratory abnormalities includes the following: Potassium 3.5, magnesium 1.8, troponin 14.4, and glucose 131. Atrial fibrillation with RVR- Continue outpatient regimen of apixaban, and metoprolol to tartrate. Initial troponin 14.4, with follow-up pending TSH normal at 2.205 The patient will be admitted to telemetry for serial cardiac enzymes, serial EKG's, cardiac rhythm monitoring and a 2-D echocardiogram with Dopplers. Most recent echocardiogram 12/20/2023 with ejection fraction 60-65% and mild aortic regurgitation. Patient was given Lopressor 5 mg IV x 3 with only minimal effect and decrease in heart rate from the 130s down to the 120s. In addition she received Klor-Con 40 mEq p.o., Zofran 4 mg IV, morphine 4 mg IV, and magnesium 1 g IV. We then gave diltiazem 10 mg IV. She was started on LR at 80 mL/h. She did convert to normal sinus rhythm at a rate of 70-80, shortly after receiving the diltiazem IV push Consult cardiology, follows with Dr. Leon. Will leave any ongoing adjustment of medications up to cardiology consult. PG Care Time/CCT Total # of Minutes Spent Total Time Spent with Patient: Total time spent is greater than 50% in coordination of care (as documented) at patient's floor/unit and/or counseling patient: Coding Level of Care Code 99430 INT INP/OBS CARE 3/75MIN Diagnoses Atrial fibrillation with rapid ventricular response I48.91
[2025-08-07] MEDS ORDERED: POLYETHYLENE (MIRALAX) 17 GM PACK PO PRN (05:45)
[2025-08-07] MEDS ORDERED: ONDANSETRON INJ 2 MG/ML 2 ML VIAL IV PRN (05:45)
[2025-08-07] MEDS ORDERED: MELATONIN 3 MG TAB PO PRN (05:45)
[2025-08-07] MEDS: LACTATED RINGER'S 1,000 ML IV SCH (06:03)
[2025-08-07 07:25] LABS: Anion Gap 7.0 (3-11); Blood Urea Nitrogen 13.0 mg/dl (6-23); Calcium 8.8 mg/dl (8.6-10.3); Carbon Dioxide 24.0 mmol/L (21-32); Chloride 105.0 mmol/L (98-107); Creatinine Clr Calc Pharmacy 79.1 ml/min; Glucose 106.0 mg/dl (70-99(Fasting)); Potassium 4.6 mmol/L (3.5-5.1); Sodium 136.0 mmol/L (136-145)
--- NOTE | 2025-08-07 09:12 | Orthopedic Progress Note ---
Date of Service August 07, 2025 Assessment & Plan (1) S/P total right hip arthroplasty: * Continue Current Treatment * Disposition: home * Progressing quite well from a R hip surgery standpoint * Continue to progress with PT as scheduled * Discussed return to driving, will begin practicing in parking lots and around neighborhood in the next week or so * Zip-line dressing removed, steri-strips applied * Weight bearing status: As tolerated, no hip precautions * Continue to monitor for ABLA * Pain control * DVT prophylaxis, continue Eliquis * Office f/u [address] Pack * Remainder care per primary team Subjective .Active Problems: S/p right CLARI 79 y/o female s/p right CLARI. Just over 2 weeks out from surgery. Doing quite well, no pain regarding the right hip and is progressing well with PT and return to activity. Denies fever/chills, chest pain/SOB, nausea/vomiting. Otherwise no complaints. Currently in the ED secondary to A-fib. Review of Systems All systems reviewed & are unremarkable except as noted in HPI & below. Physical Exam * Musculoskeletal: Right hip zip-line intact, removed for exam. Underlying incision CDI, no drainage or evidence of dehiscence. Otherwise no obvious deformity or overlying skin changes. Minimals diffuse TTP proximal thigh and hip region. Otherwise no specific tenderness of distal thigh, lower leg, f oot/ankle. AROM hip flexion intact. AROM foot/ankle intact. Sensation intact plantar/dorsal foot. Brisk capillary refill. Results & Data Results & Data Laboratory Results . Diagnostic Findings . PG Care Time/CCT Total # of Minutes Spent Total Time Spent with Patient: Total time spent is greater than 50% in coordination of care (as documented) at patient's floor/unit and/or counseling patient: Coding Level of Care Code 43472 Post Operative Follow-Up Diagnoses S/P total right hip arthroplasty Z96.641
[2025-08-07] MEDS: APIXABAN 5 MG TABLET PO SCH (09:58)
[2025-08-07] MEDS: METOPROLOL TARTRATE 25 MG TAB PO SCH (09:59)
--- NOTE | 2025-08-07 12:20 | XCELERA ---
[id number] \\[id number]
[2025-08-07 15:08] VITALS: BP 143/70; PULSE 68; RESP 18; O2SAT 97
--- NOTE | 2025-08-07 15:43 | Discharge Summary ---
Discharge Summary Date of Service August 07, 2025 Principal Dx & Hospital Course #1 = Principal Diagnosis (1) Atrial fibrillation with rapid ventricular response: Plan 79-year-old female PMHx osteopenia, OA, PAF on Eliquis, saccular aneurysm, and IT band syndrome of R leg presenting for concerning of being in Afib. Her evaluation is with mild leukocytosis 10.92, H/H 11.0/33.0. Sodium appears falsely low secondary to hyperglycemia. Troponin with mild elevation, likely in setting of tachycardia. Admission for Afib RVR. #Afib with RVR H/o PAF, on Eliquis and metoprolol. Prior h/o RVR, required diltiazem to break. No recent illness, admits to some stress around the holidays. Follows with cardiology, most recent visit 05/07/2025. Admission for further medical management of Afib with RVR, maximize electrolytes. - CBC leukocytosis 10k, H/H 11/33; PT/INR WNL; CMP Na 134, glucose 131; Mag 1.8 - repeat BMP - Troponin 14.4, pending repeat - likely in setting of tachycardia - TSH 2.205 - EKG A-fib 70 bpm - Echo 12/2023, pending repeat - IVF LR @ 80 mL/hr - Continue home meds for now- Eliquis, metoprolol - Zofran prn N/V - Diltiazem prn - Cardio consulted, ? medication adjustment to [facility] - appreciate input and recs #S/p total R hip arthroplasty - Completed 07/20/2025; pain well-controlled, reports not taking opioids at this time; sutures to be removed 08/07/2025 Dispo: Obs, PCU VTE Prophylaxis: On Eliquis - continue This document was dictated utilizing [employer]. Please excuse any grammatical errors that may be secondary to use of this software. Admission HPI Per Admitting Provider 79-year-old female PMHx osteopenia, OA, PAF on Eliquis, saccular aneurysm, and IT band syndrome of R leg presenting for concerning of being in Afib. Reports similar episode of palpitations sensation with fast heart rate in December 2023. States that she was asleep the evening of arrival and she woke up noticing that her heart rate was fast. She checked her watch which shows an EKG with live tracing of her heart and noticed that it was fast and read as A-fib. Patient also states that she could hear pulsating in her ears suggestive of an abnormal heartbeat. She has palpitations at baseline, these felt more intense in nature. No SOB, dizziness, or additional concerns. No recent illness, no F/C. Denies chest pain, SOB, abdominal pain, N/V/D/C, numbness/tingling, URI symptoms, LUTS, weakness, syncope, or falls. She has been taking her medications as prescribed. No known triggers identified. Follows with cardiology as scheduled. She had a recent R hip arthroplasty beginning of July, sutures are to be removed 08/07/2025. ED evaluation reveals CBC with mild leukocytosis 10.92, H/H 11/33, plt 407; PT/INR WNL; CMP Na 134, ratio 27.9, glucose 131; trop 14.4; TSH 2.205; EKG A-fib at 79 bpm.; Provided with 1L NSS, zofran 4mg IV, morphine 4mg IV, Lopressor 5mg IV x 3, mag sulfate 1g IV, KCl 40 mEq, and diltiazem 10mg IV in ED. Please see Dr. Freeman attestation for adjustments/additions to treatment plan. Discharge Plan Discharge Items Reason For Visit: AFIB RVR Discharge Diagnosis: A fib RVR Condition on Discharge: Fair Activity: Resume your previous activity Non-emergency contact: Primary Care Provider Call non-emergency contact if: you have any medication questions Follow-up/Referrals: Sandra Cason MD [Primary Care Provider] - Diet: Regular Addtl Attending Provider Instructions: Recommend followup with Cardiology in next 2 weeks to discuss any changes to her meds. Recommend followup with PCP in 1-2 weeks. Pending Studies at Discharge: No Stand-Alone Forms: [employer], Smoking Cessation Medications and DC Order Prescriptions: Continued tramadol 50 mg tablet 50 mg PO Q8H PRN (Reason: pain) Qty: 15 0RF Patient Comments: patient states she has this medication but hasnt been taking it Eliquis 5 mg tablet 5 mg PO BID Qty: 180 3RF metoprolol tartrate 25 mg tablet 25 mg PO BID Qty: 180 3RF triamcinolone acetonide 0.025 % cream 1 applic topical DAILY PRN (Reason: Rash/Eczema) metronidazole 0.75 % cream 1 applic topical DAILY PRN (Reason: Rash/Rosacea) oxycodone 5 mg tablet 0 mg PO Q6H PRN (Reason: pain) Patient Comments: pt states she has this prescription, but hasnt been taking it calcium polycarbophil [FiberCon] 625 mg Tablet 1,250 mg PO DAILY Probiotic 1 cap PO DAILY acetaminophen [Tylenol Extra Strength] 500 mg Tablet 1,000 mg PO DAILY PRN (Reason: Pain) Colorproof Biorepair Hair Serum 1 applic topical DAILY Discontinued cefadroxil 500 mg capsule 500 mg PO BID Qty: 20 0RF Admission Data Admit Date/Time: 08/07/25 05:17 Attending Provider: Daron Rich Admit Provider: Jorge Luis Freeman Primary Care Provider: Sandra Cason Other Providers: Jorge Luis Freeman; Bryson Vidal; Isiah Fisher; Krzysztof Samaniego; Fuentes Alvarado; Lukas Hernandez Jr; Yared Leon; Chayito Ford; Rosalva Yadav; Vladimir Montejo; Vladimir Metzger; Angeles Rodriguez; Gabino Doran; Abigail Arevalo; Gabino Xiao; Jacob Dean; Meek Campbell; Mike Khan; Nazia Vale; Yokasta Mclean Hospital Stay Data Consultations 08/07/25 04:45 ED Decision to Admit Stat 08/07/25 05:45 Consult Cardiology Routine Pending Results Patient Have Any Pending Studies at Discharge: No Discharge Instructions Given to Patient (Per Discharging Provider) Recommend followup with Cardiology in next 2 weeks to discuss any changes to her meds. Recommend followup with PCP in 1-2 weeks. Coding Diagnoses Atrial fibrillation with rapid ventricular response I48.91
--- NOTE | 2025-08-07 18:03 | Cardiology Consultation ---
Date of Consultation August 07, 2025 Assessment & Plan (1) Atrial fibrillation with rapid ventricular response: Plan 1. Atrial fibrillation: Paroxysmal. Overall she done quite well. 2 episodes in 18 months is actually quite good. While she does notice a high heart rate and has a sense of palpitation, she has few other symptoms. The episodes of cells are quite well-tolerated. Relatively short in duration. We discussed several options for management moving forward. She has a relatively low resting heart rate and I would think any additional metoprolol or other agents are warranted on a daily basis given her bradycardia and infrequent episodes. Taking the daily antiarrhythmic would also be less desirable. It is possible to take some diltiazem on a as needed basis. She could certainly have some short acting diltiazem at home to take during acute episodes if she wants. Additionally, given the absence of associated symptoms she could simply wait out an episode despite high heart rates. She is elected to consider her options and follow-up in the outpatient setting. I think perfectly reasonable for her to be discharged on her current medical regimen including continued systemic anticoagulation with apixaban. History of Present Illness Reason for Consultation: Atrial fibrillation Requesting Physician: Layla Attending Physician: Daron Rich History of Present Illness The patient is an 79-year-old woman with a history of paroxysmal atrial fibrillation who presents to the hospital with an episode of atrial fibrillation. She noticed the acute onset of palpitations and a rapid heart rate earlier this morning. She did not describe additional symptoms such as dizziness, shortness of breath or chest discomfort. However, based on the nature of her symptoms she elected to present to the emergency room where she was discovered to have atrial fibrillation and high ventricular rate. She was administered metoprolol and eventually diltiazem with both improvement in her heart rate and eventual conversion to sinus rhythm. She states this episode is very similar to when she experienced approximately 18 months ago. That episode was also treated in the hospital and lasted approximately 6 hours. She may have had a another episode of atrial fibrillation quite remotely. Also similar in character and duration. In general she is an active individual who did not endorse symptoms of cardiovascular disease. She is generally not have dizziness, lightheadedness or palpitation. She recently had hip surgery and is recovering. Her heart rate may be slightly higher at times with activity, but generally not over 100 bpm. She does have a watch which monitors her heart rate and until yesterday was not having any warnings about atrial fibrillation or notably high heart rates. Allergies Allergy/AdvReac Type Severity Reaction Status Date / Time No Known Drug Allergies Allergy Unknown Verified 07/20/25 07:34 milk AdvReac Intermediate Gastrointestinal Verified 07/20/25 07:34 Upset Home Medications Medication Instructions Recorded Confirmed Type metronidazole 0.75 % topical cream 1 applic topical DAILY PRN 07/13/22 08/07/25 History Rash/Rosacea triamcinolone acetonide 0.025 % 1 applic topical DAILY PRN 07/13/22 08/07/25 History topical cream Rash/Eczema tramadol 50 mg tablet 50 mg PO Q8H PRN pain #15 tabs 12/19/24 08/07/25 Rx apixaban 5 mg tablet (Eliquis) 5 mg PO BID #180 tabs 04/12/25 08/07/25 Rx metoprolol tartrate 25 mg tablet 25 mg PO BID #180 tabs 04/12/25 08/07/25 Rx Colorproof Biorepair Hair Serum 1 applic topical DAILY 06/13/25 08/07/25 History Probiotic 1 cap PO DAILY 06/13/25 08/07/25 History acetaminophen 500 mg tablet 1,000 mg PO DAILY PRN Pain 06/13/25 08/07/25 History (Tylenol Extra Strength) calcium polycarbophil 625 mg 1,250 mg PO DAILY 06/13/25 08/07/25 History tablet (FiberCon) oxycodone 5 mg tablet 0 mg PO Q6H PRN pain 08/07/25 08/07/25 History Patient History 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 History of colon polyps 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- saw a neurosurgeon at [facility] - told nothing to worry about 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) found by [facility]- saw a neurosurgeon at [facility] - told nothing to worry about Paroxysmal atrial fibrillation Eliquis - no cardioversion - [facility] [place] Cardiology Dr Leon Osteopenia History of palpitations [facility] Cardiology Dr Leon Osteoarthritis Elevated TSH pt unsure, 06/2025 WNL TSH and T4 Bilateral hearing loss hearing aids History of COVID-19 (03/25/24) not hospitalized - resolved Rosacea Surgical History Hx of bilateral cataract extraction (2022) History of tooth extraction H/O breast surgery x3 biopsies - benign, calcifications. H/O section x1 H/O colonoscopy (05/2024) multiple Family History Mother Heart disease Afib Denies family history of Ovarian cancer Prostate cancer Myocardial infarction Breast cancer Lung cancer Colorectal cancer Stroke Social History Smoking Status: Never smoker Second Hand Exposure: No; Do You Dip or Chew Tobacco: No; Hx Alcohol Use: Yes Alcohol type: wine Alcohol Intake Frequency: 4 or More x per/Week Hx Substance Use: No Preferred Language: Egyptian Communication Ability: Effective Visual Impairment: Limited Hearing Ability: Normal Grain Handler Required: No Beliefs That Will Affect Care: None marital status: Current Living Situation: Spouse Current Living Situation Comment: Two story home, with master suite on first floor. current occupational status: retired How many Children do You have: 2 Feels Safe at Home: Yes Childhood Exposure to Second-Hand Smoke: Yes (father) Diet: regular caffeine: Yes during the past year weight has: remained stable Dental Care, Regularly: Yes Physical Activity Frequency: 5-6 Times per Week Seatbelt Use: always Sunscreen Use: Yes Assistive Devices: Walker Review of Systems Review of Systems: Per HPI Physical Exam Physical Exam: She is alert and oriented x3. Mood affect appear normal. She answered all questions appropriately. HEENT: Sclerae are anicteric. Pupils are equal and reactive to light and accommodation. Extraocular movements were intact. Neuro: Cranial nerves intact Lungs: Lungs are clear to auscultation bilaterally. There are no rales wheezes or rhonchi. She has normal respiratory effort without use of accessory muscles. There is normal pulmonary excursion. Cardiac: The rhythm was regular. S1 and S2 were normal. There are no murmurs on examination. The PMI was not markedly displaced on palpation. Extremities: Patient has bilateral radial pulses that are equal in intensity. There is no evidence cyanosis or clubbing. There was no evidence of significant peripheral edema bilaterally. Skin: There are no rashes noted on examination today. Results & Data Vital Signs (Past 12 Hours) Vital Signs Temp Pulse Pulse Resp BP Pulse Ox O2 Del Method 08/07/25 15:51 36.6 C 68 18 143/70 H 97 08/07/25 15:07 68 18 143/70 H 97 Room Air 08/07/25 07:32 64 08/07/25 06:00 72 16 137/98 98 Room Air Laboratory Results Abnormal Lab Results 08/06/25 08/07/25 23:49 06:41 WBC 10.92 H RBC 3.55 L Hgb 11.0 L Hct 33.0 L MCV 93.0 MCH 31.0 MCHC 33.3 RDW Std Deviation 42.6 RDW Coeff of Symone 12.4 Plt Count 407 H MPV 8.6 L Immature Gran % (Auto) 0.5 Neut % (Auto) 68.0 Lymph % (Auto) 15.9 [place] % (Auto) 10.2 Eos % (Auto) 4.2 Baso % (Auto) 1.2 Neut # (Auto) 7.42 H Lymph # (Auto) 1.74 [place] # (Auto) 1.11 H Eos # (Auto) 0.46 Baso # (Auto) 0.13 Immature Gran # (Auto) 0.06 PT 10.2 INR 1.0 Sodium 134 L 136 Potassium 3.5 4.6 D Chloride 99 105 Carbon Dioxide 26 24 Anion Gap 9 7 BUN 19 13 Creatinine 0.68 0.49 L Est Cr Clr Drug Dosing 57.0 79.1 eGFR 87.99 95.22 BUN/Creatinine Ratio 27.9 H 26.5 H Glucose 131 H 106 H Calcium 9.3 8.8 Magnesium 1.8 Total Bilirubin 0.3 AST 18 ALT 15 Alkaline Phosphatase 65 Troponin I High Sens 14.4 H 15.8 H Total Protein 7.4 Albumin 4.2 Globulin 3.2 Albumin/Globulin Ratio 1.3 TSH 2.205 Diagnostic Findings Echocardiogram 08/07/2025: Normal LV systolic function with ejection fraction of 60 to 65%. Mildly dilated left atrium. No significant valvular heart disease PG Care Time/CCT Total # of Minutes Spent Total Time Spent with Patient: Total time spent is greater than 50% in coordination of care (as documented) at patient's floor/unit and/or counseling patient: Coding Level of Care Code 82967 INT INP/OBS CARE MIN Diagnoses Atrial fibrillation with rapid ventricular response I48.91
--- NOTE | 2025-08-07 18:46 | Electrocardiogram Report ---
Test Reason : Blood Pressure : */* mmHG Vent. Rate : 147 BPM Atrial Rate : * BPM P-R Int : * ms QRS Dur : 74 ms QT Int : 270 ms P-R-T Axes : * 9 89 degrees QTcB Int : 422 ms Atrial fibrillation with rapid ventricular response Abnormal ECG When compared with ECG of 22-Jun-2025 09:20, Atrial fibrillation has replaced Sinus rhythm Vent. rate has increased by 96 bpm Confirmed by Vladimir Metzger ([id number]) on 08/07/2025 6:46:36 PM Referred By: REFERRED SELF Confirmed By: Vladimir Metzger
--- NOTE | 2025-08-07 18:47 | Electrocardiogram Report ---
Test Reason : Blood Pressure : */* mmHG Vent. Rate : 79 BPM Atrial Rate : * BPM P-R Int : * ms QRS Dur : 76 ms QT Int : 340 ms P-R-T Axes : * 4 38 degrees QTcB Int : 389 ms Atrial fibrillation Abnormal ECG When compared with ECG of 06-Aug-2025 23:44, (unconfirmed) Vent. rate has decreased by 68 bpm Nonspecific T wave abnormality no longer evident in Lateral leads Confirmed by Vladimir Metzger ([id number] on 08/07/2025 6:47:24 PM Referred By: REFERRED SELF Confirmed By: Vladimir Metzger
== END 2025-08-07 17:00 | disposition home or self-care (01) ==
LOC: SUATTDRO → ED 23:35 → EDINP 23:35 → SUATTDRO 08-07 05:17 → 2E 08-07 05:45
DX: R00.2 Palpitations; Z79.01 Long term (current) use of anticoagulants; I48.91 Unspecified atrial fibrillation; Z91.0110 Allergy to milk products, unspecified; Z79.899 Other long term (current) drug therapy